=== PATIENT | male | born 1970 | race Two or more races ===

== ENCOUNTER 2017-08-14 20:58 | Emergency (ER) | payer MEDICAID, OTHER ==
[~2017-08-14] VITALS: Ht 177.8 cm; Wt 108.9 kg
[2017-08-14 21:50] LABS: Basophils # (auto) 0 uL; Basophils % (auto) 0.5 % (0.0-2.0); Eosinophils # (auto) 0.2 uL; Eosinophils % (auto) 3.1 % (0.0-7.0); Hematocrit 44.6 % (41.0-53.0); Hemoglobin 14.9 g/dL (13.5-17.5); Lymphocytes # (auto) 2.5 uL; Mean Corpuscular Hemoglobin 29.8 pg (28.0-32.0); Mean Corpuscular Hgb Conc. 33.4 g/dL (32.0-36.0); Mean Corpuscular Volume 89.2 fL (80.0-100.0); Mean Platelet Volume 9.3 fL (6.9-10.8); Monocytes # (auto) 0.5 uL; Neutrophils # (auto) 4.4 uL; Neutrophils % (auto) 57.4 % (37.0-80.0); Nucleated Red Blood Cells % 0.1 %; Platelet Count (auto) 200 10^3/uL (140-450); White Blood Cell 7.7 10^3/uL (4.4-10.8)
[2017-08-14 22:00] LABS: Albumin 3.5 g/dL (3.4-5.0); BUN/Creatinine Ratio 13.9; Bilirubin, Total 0.3 mg/dL (0.2-1.0); Calcium 8.6 mg/dL (8.5-10.1)
[2017-08-15] MEDS ORDERED: ONDANSETRON HCL 4 MG/2 ML VIAL IV ONE (03:15)
[2017-08-15] MEDS ORDERED: MORPHINE SULF INJ 2 MG/ML SYRINGE 1ML IV ONE (03:15)
[2017-08-15 04:16] LABS: Urine Bilirubin Negative (Negative); Urine Blood Negative /uL (Negative); Urine Color Yellow (Yellow); Urine Glucose TRACE mg/dL (Normal); Urine Ketone Negative (Negative); Urine Mucus FEW (None Seen); Urine Nitrite Negative (Negative); Urine RBC 1 /hpf (0 - 3); Urine Squamous Epithelial Cell FEW /hpf (<5); Urine Urobilinogen Normal (Negative)
[2017-08-15 05:31] VITALS: BP 134/75
== END 2017-08-15 05:37 | disposition home or self-care (01) ==
LOC: ER 21:02
DX: N23 Unspecified renal colic (principal); N40.0 Benign prostatic hyperplasia without lower urinary tract symptoms; N39.0 Urinary tract infection, site not specified; F19.10 Other psychoactive substance abuse, uncomplicated; F17.210 Nicotine dependence, cigarettes, uncomplicated; I10 Essential (primary) hypertension; Z87.442 Personal history of urinary calculi
CPT/HCPCS: 36415; 74176; 80053; 80307; 81001; 85025; 96374; 96375; 99285; J2270; J2405

== ENCOUNTER 2020-12-05 00:34 | Inpatient (IN) | payer MEDICAID ==
[~2020-12-05] VITALS: Ht 175.3 cm; Wt 110.5 kg
[2020-12-05] MEDS ORDERED: SODIUM CHLORIDE 0.9% 1,000 ML IV ONE (01:30)
[2020-12-05] MEDS ORDERED: ACETAMINOPHEN 325 MG TAB PO ONE (01:30)
[2020-12-05 02:22] LABS: Basophils # (auto) 0 10 ^3/uL (0-0.2); Basophils % (auto) 0.4 % (0.0-2.0); Eosinophils # (auto) 0 10 ^3/uL (0-0.8); Eosinophils % (auto) 0.1 % (0.0-7.0); Hematocrit 42.4 % (41.0-53.0); Hemoglobin 14.5 g/dL (13.5-17.5); Lymphocytes % (auto) 25.4 % (10.0-50.0); Mean Corpuscular Hemoglobin 29.8 pg (28.0-32.0); Mean Corpuscular Hgb Conc. 34.1 g/dL (32.0-36.0); Mean Corpuscular Volume 87.4 fL (80.0-100.0); Monocytes # (auto) 0.3 10 ^3/uL (0-1.3); Monocytes % (auto) 7.5 % (0.0-12.0); Neutrophils # (auto) 2.5 10 ^3/uL (1.6-8.6); Neutrophils % (auto) 66.6 % (37.0-80.0); Nucleated Red Blood Cells % 0.4 %; Red Blood Cells 4.85 10^6/uL (4.5-5.90); Red Cell Distribution Width 14.2 % (11.8-14.3); White Blood Cell 3.8 10^3/uL (4.4-10.8)
[2020-12-05 02:42] LABS: Albumin 3.3 g/dL (3.4-5.0); Anion Gap 6 (5-15); Blood Urea Nitrogen 9 mg/dL (7-18); Calcium 8.4 mg/dL (8.5-10.1); Carbon Dioxide 23 mmol/L (21-32); Chloride 106 mmol/L (98-107); Glucose 178 mg/dL (74-106); Potassium 3.8 mmol/L (3.5-5.1); Sodium 135 mmol/L (136-145)
[2020-12-05 02:49] LABS: Alanine Aminotransferase 38 U/L (16-61); Alkaline Phosphatase 101 U/L (45-117); Aspartate Aminotransferase 40 U/L (15-37); BUN/Creatinine Ratio 12.3; Bilirubin, Total 0.4 mg/dL (0.2-1.0); GFR African American 147 mL/min; GFR Non-African American 121 mL/min; Total Protein 8.4 g/dL (6.4-8.2)
[2020-12-05] MEDS ORDERED: IPRATROPIUM BROM 0.5 MG/2.5ML INH SOL NEB ONE (03:45)
[2020-12-05] MEDS ORDERED: ALBUTEROL SULF 2.5 MG/0.5ML(0.5%) NEB SOLN NEB ONE (03:45)
[2020-12-05] MEDS ORDERED: ACETAMINOPHEN 500 MG TAB PO ONE (03:45)
[2020-12-05] MEDS ORDERED: DexAMETHasone SOD PHOS 10MG/1ML VIAL INJ IV ONE (04:15)
[2020-12-05] MEDS ORDERED: cefTRIAXone 1GM/50ML D5W 50 ML IV ONE (05:15)
[2020-12-05] MEDS ORDERED: ONDANSETRON HCL 4 MG/2 ML VIAL IV PRN (05:45)
[2020-12-05] MEDS ORDERED: NITROGLYCERIN 0.4 MG SL TAB SL PRN (05:45)
[2020-12-05] MEDS ORDERED: ACETAMINOPHEN 500 MG TAB PO PRN (05:45)
[2020-12-05] MEDS ORDERED: DEXTROSE (50%) 50ML SYRG IV PRN (05:45)
[2020-12-05] MEDS ORDERED: SODIUM CHLORIDE 0.9% 1,000 ML IV SCH (05:45)
[2020-12-05] MEDS ORDERED: MORPHINE SULFATE INJECTION 2 MG/ML SYRG IV PRN (05:45)
[2020-12-05] MEDS ORDERED: DOCUSATE SOD 100 MG CAP PO PRN (05:45)
[2020-12-05] MEDS ORDERED: ACETAMINOPHEN 325 MG TAB PO PRN (05:45)
[2020-12-05] MEDS: InsuLIN REG 1unit/0.01ml Soln (100units/ml) SC SCH ×4 (07:07→22:05)
[2020-12-05] MEDS: ACCU-CHEK COMFORT CURVE STRIP VI SCH ×4 (07:07→22:06)
[2020-12-05] MEDS: BUDESONIDE (INHALATION) 180 MCG IH IN SCH ×2 (10:00→20:49)
[2020-12-05] MEDS: ENOXAPARIN SOD 40 MG/0.4 ML SYRINGE SC SCH ×2 (11:45→22:06)
[2020-12-05] MEDS: ZINC SULFATE 220mg CAP or TAB PO SCH (12:02)
[2020-12-05] MEDS: CHOLECALCIFEROL (VITD3) 2,000 UNIT CAP/TAB PO SCH (12:02)
[2020-12-05] MEDS: ASCORBIC ACID 1,000 MG TAB PO SCH (12:02)
[2020-12-05] MEDS: DexAMETHasone SOD PHOS 10MG/1ML VIAL INJ IV SCH (12:04)
[2020-12-05] MEDS: FAMOTIDINE (10MG/ML) 2ML VL IV SCH ×2 (12:04→21:59)
[2020-12-05] MEDS: DOXYCYCLINE 100MG/250ML 250 ML IV SCH ×2 (12:23→22:05)
[2020-12-05] MEDS: ALBUTEROL SULF HFA 90MCG INH 200DOSE IN PRN (20:49)
[2020-12-05] MEDS ORDERED: REMDESIVIR PER PHARMACY 0 ML IV SCH (23:30)
[2020-12-06 07:03] LABS: Basophils # (auto) 0 10 ^3/uL (0-0.2); Eosinophils # (auto) 0 10 ^3/uL (0-0.8); Hematocrit 38.2 % (41.0-53.0); Hemoglobin 13.1 g/dL (13.5-17.5); Lymphocytes # (auto) 1.1 10 ^3/uL (0.4-5.4); Lymphocytes % (auto) 13.4 % (10.0-50.0); Mean Corpuscular Hemoglobin 29.9 pg (28.0-32.0); Mean Corpuscular Hgb Conc. 34.3 g/dL (32.0-36.0); Mean Corpuscular Volume 87.2 fL (80.0-100.0); Monocytes # (auto) 0.4 10 ^3/uL (0-1.3); Neutrophils # (auto) 6.8 10 ^3/uL (1.6-8.6); Neutrophils % (auto) 81.6 % (37.0-80.0); Nucleated Red Blood Cells % 0.1 %; Red Blood Cells 4.38 10^6/uL (4.5-5.90); Red Cell Distribution Width 14.2 % (11.8-14.3); White Blood Cell 8.4 10^3/uL (4.4-10.8)
[2020-12-06] MEDS: ALBUTEROL SULF HFA 90MCG INH 200DOSE IN PRN ×2 (07:10→18:55)
[2020-12-06] MEDS: BUDESONIDE (INHALATION) 180 MCG IH IN SCH ×2 (07:10→18:55)
[2020-12-06] MEDS: ACCU-CHEK COMFORT CURVE STRIP VI SCH ×4 (08:10→21:28)
[2020-12-06] MEDS: InsuLIN REG 1unit/0.01ml Soln (100units/ml) SC SCH ×4 (08:17→21:28)
[2020-12-06] MEDS: DexAMETHasone SOD PHOS 10MG/1ML VIAL INJ IV SCH (09:55)
[2020-12-06] MEDS: DOXYCYCLINE 100MG/250ML 250 ML IV SCH ×2 (09:55→21:28)
[2020-12-06] MEDS: ZINC SULFATE 220mg CAP or TAB PO SCH (09:55)
[2020-12-06] MEDS: ENOXAPARIN SOD 40 MG/0.4 ML SYRINGE SC SCH ×2 (09:55→21:28)
[2020-12-06] MEDS: ASCORBIC ACID 1,000 MG TAB PO SCH (09:55)
[2020-12-06] MEDS: CHOLECALCIFEROL (VITD3) 2,000 UNIT CAP/TAB PO SCH (09:55)
[2020-12-06] MEDS: FAMOTIDINE (10MG/ML) 2ML VL IV SCH ×2 (09:55→21:27)
[2020-12-06 11:57] LABS: Albumin 2.9 g/dL (3.4-5.0); Calcium 8.7 mg/dL (8.5-10.1); Potassium 3.8 mmol/L (3.5-5.1)
[2020-12-06 12:01] LABS: BUN/Creatinine Ratio 26.8; Bilirubin, Total 0.2 mg/dL (0.2-1.0); Total Protein 7.3 g/dL (6.4-8.2)
[2020-12-06] MEDS ORDERED: REMDESIVIR 200 MG in NS 210ml LOADING DOSE ADULT IV ONE (15:00)
[2020-12-06 16:05] VITALS: BP 127/86
[2020-12-07] VITALS: BP 145/79
[2020-12-07] MEDS: HYDROcodone-ACET 5/325MG TAB PO PRN (01:38)
[2020-12-07 05:59] LABS: Calcium 8.2 mg/dL (8.5-10.1); Potassium 3.5 mmol/L (3.5-5.1)
[2020-12-07 06:04] LABS: BUN/Creatinine Ratio 23.4; Bilirubin, Total 0.4 mg/dL (0.2-1.0); Total Protein 7.5 g/dL (6.4-8.2)
[2020-12-07] MEDS: ACCU-CHEK COMFORT CURVE STRIP VI SCH ×4 (06:17→21:47)
[2020-12-07] MEDS: InsuLIN REG 1unit/0.01ml Soln (100units/ml) SC SCH ×4 (06:18→21:56)
[2020-12-07] MEDS: ALBUTEROL SULF HFA 90MCG INH 200DOSE IN PRN ×2 (07:35→21:26)
[2020-12-07] MEDS: BUDESONIDE (INHALATION) 180 MCG IH IN SCH ×2 (07:35→21:26)
[2020-12-07 08:00] VITALS: BP 129/67
[2020-12-07] MEDS: DexAMETHasone SOD PHOS 10MG/1ML VIAL INJ IV SCH (09:54)
[2020-12-07] MEDS: FAMOTIDINE (10MG/ML) 2ML VL IV SCH ×2 (09:54→21:47)
[2020-12-07] MEDS: DOXYCYCLINE 100MG/250ML 250 ML IV SCH ×2 (09:54→21:47)
[2020-12-07] MEDS: ASCORBIC ACID 1,000 MG TAB PO SCH (09:55)
[2020-12-07] MEDS: ENOXAPARIN SOD 40 MG/0.4 ML SYRINGE SC SCH ×2 (09:55→21:47)
[2020-12-07] MEDS: ZINC SULFATE 220mg CAP or TAB PO SCH (09:55)
[2020-12-07] MEDS: CHOLECALCIFEROL (VITD3) 2,000 UNIT CAP/TAB PO SCH (09:55)
[2020-12-07] MEDS: guaiFENesin 200 MG/10 ML UD PO PRN (11:00)
[2020-12-07] MEDS: REMDESIVIR 100mg 100 MG in SODIUM CHL 0.9% 230 ML IV SCH (15:15)
[2020-12-07] MEDS ORDERED: DEX4T PO (15:32)
[2020-12-07] MEDS ORDERED: DOXY-286 PO (15:32)
[2020-12-07] MEDS ORDERED: ASPI-543 PO (15:32)
[2020-12-07] MEDS ORDERED: FAMO20TA10 PO (15:32)
[2020-12-07] MEDS ORDERED: ALBUAER3 IN (15:32)
[2020-12-07 16:00] VITALS: BP 149/72
[2020-12-07 23:41] VITALS: BP 153/85
[2020-12-08] MEDS: ACCU-CHEK COMFORT CURVE STRIP VI SCH ×2 (06:20→11:30)
[2020-12-08] MEDS: InsuLIN REG 1unit/0.01ml Soln (100units/ml) SC SCH ×2 (06:21→11:30)
[2020-12-08 07:56] LABS: Basophils # (auto) 0 10 ^3/uL (0-0.2); Basophils % (auto) 0.1 % (0.0-2.0); Eosinophils # (auto) 0 10 ^3/uL (0-0.8); Hematocrit 40.4 % (41.0-53.0); Hemoglobin 13.9 g/dL (13.5-17.5); Lymphocytes # (auto) 1.5 10 ^3/uL (0.4-5.4); Lymphocytes % (auto) 20.4 % (10.0-50.0); Mean Corpuscular Hemoglobin 29.8 pg (28.0-32.0); Mean Corpuscular Hgb Conc. 34.5 g/dL (32.0-36.0); Mean Corpuscular Volume 86.2 fL (80.0-100.0); Monocytes # (auto) 0.5 10 ^3/uL (0-1.3); Monocytes % (auto) 6.9 % (0.0-12.0); Neutrophils # (auto) 5.2 10 ^3/uL (1.6-8.6); Neutrophils % (auto) 72.6 % (37.0-80.0); Nucleated Red Blood Cells % 0.2 %; Red Blood Cells 4.68 10^6/uL (4.5-5.90); Red Cell Distribution Width 14.6 % (11.8-14.3); White Blood Cell 7.2 10^3/uL (4.4-10.8)
[2020-12-08 08:00] VITALS: BP 141/86
[2020-12-08 08:13] LABS: Potassium 3.6 mmol/L (3.5-5.1)
[2020-12-08 08:25] LABS: Albumin 2.8 g/dL (3.4-5.0); BUN/Creatinine Ratio 28.4; Bilirubin, Total 0.4 mg/dL (0.2-1.0); CRP High Sensitivity 3.8 mg/dL (< 0.3); Calcium 8.3 mg/dL (8.5-10.1); Total Protein 7.6 g/dL (6.4-8.2)
[2020-12-08] MEDS: BUDESONIDE (INHALATION) 180 MCG IH IN SCH (09:19)
[2020-12-08] MEDS: ALBUTEROL SULF HFA 90MCG INH 200DOSE IN PRN (09:19)
[2020-12-08] MEDS: ZINC SULFATE 220mg CAP or TAB PO SCH (09:27)
[2020-12-08] MEDS: DexAMETHasone SOD PHOS 10MG/1ML VIAL INJ IV SCH (09:27)
[2020-12-08] MEDS: FAMOTIDINE (10MG/ML) 2ML VL IV SCH (09:27)
[2020-12-08] MEDS: ASCORBIC ACID 1,000 MG TAB PO SCH (09:28)
[2020-12-08] MEDS: CHOLECALCIFEROL (VITD3) 2,000 UNIT CAP/TAB PO SCH (09:28)
[2020-12-08] MEDS: ENOXAPARIN SOD 40 MG/0.4 ML SYRINGE SC SCH (09:28)
[2020-12-08] MEDS: DOXYCYCLINE 100MG/250ML 250 ML IV SCH (09:30)
[2020-12-08] MEDS: guaiFENesin 200 MG/10 ML UD PO PRN (12:40)
[2020-12-08] MEDS: HYDROcodone-ACET 5/325MG TAB PO PRN (12:41)
[2020-12-08 16:02] VITALS: BP 131/79
[2020-12-08] MEDS: REMDESIVIR 100mg 100 MG in SODIUM CHL 0.9% 230 ML IV SCH (16:04)
== END 2020-12-08 17:20 | disposition home health service (06) | DRG 137 ==
LOC: ER 00:34 → TELE 00:35 → TELE-WESTW 12-06 12:02
PROVIDERS: ADMIT Nurse Practitioner Family; ATTEND Hospitalist
PROC: XW033E5 Introduction of Remdesivir Anti-infective into Peripheral Vein, Percutaneous Approach, New Technology Group 5 (ICD-10-PCS; principal; 2020-12-06)
DX: U07.1 COVID-19 (principal); J12.82 Pneumonia due to coronavirus disease 2019; E11.65 Type 2 diabetes mellitus with hyperglycemia; J96.01 Acute respiratory failure with hypoxia; E66.9 Obesity, unspecified; Z68.34 Body mass index [BMI] 34.0-34.9, adult; F17.210 Nicotine dependence, cigarettes, uncomplicated; I10 Essential (primary) hypertension; J44.0 Chronic obstructive pulmonary disease with (acute) lower respiratory infection; Z87.442 Personal history of urinary calculi
CPT/HCPCS: 36415; 71045; 74176; 80053; 82728; 82962; 83036; 83605; 83690; 83735; 83880; 84443; 84484; 85025; 85379; 86141; 87040; 87426; 93005; 93970; 94640; 96361; 96365; 96375; G0378; J0696; J1100; J1815; J3490

== ENCOUNTER 2020-12-12 13:02 | Inpatient (IN) | payer MEDICAID ==
[~2020-12-12] VITALS: Ht 175.3 cm; Wt 102.8 kg
[~2020-12-12 13:02] MED LIST: ALBUAER3 IN; ASPI-543 PO; DEX4T PO; DOXY-286 PO; FAMO20TA10 PO
[2020-12-12 14:24] LABS: INR 1.23 (0.9-1.15); Partial Thromboplastin Time 27.6 sec (23.0-31.2)
[2020-12-12 14:44] LABS: Albumin 2.6 g/dL (3.4-5.0); Anion Gap 7 (5-15); Blood Urea Nitrogen 13 mg/dL (7-18); Calcium 8.2 mg/dL (8.5-10.1); Carbon Dioxide 25 mmol/L (21-32); Chloride 105 mmol/L (98-107); Glucose 212 mg/dL (74-106); Magnesium 2.3 mg/dL (1.6-2.6); Potassium 3.4 mmol/L (3.5-5.1); Sodium 137 mmol/L (136-145)
[2020-12-12 14:48] LABS: Hemoglobin 13.4 g/dL (13.5-17.5)
[2020-12-12 14:49] LABS: Alanine Aminotransferase 19 U/L (16-61); Alkaline Phosphatase 98 U/L (45-117); Aspartate Aminotransferase 17 U/L (15-37); BUN/Creatinine Ratio 15.9; GFR African American 128 mL/min; GFR Non-African American 106 mL/min; Total Protein 8.3 g/dL (6.4-8.2)
[2020-12-12 14:50] LABS: Hematocrit 38.7 % (41.0-53.0); Mean Corpuscular Hemoglobin 30.1 pg (28.0-32.0); Mean Corpuscular Hgb Conc. 34.7 g/dL (32.0-36.0); Mean Corpuscular Volume 86.8 fL (80.0-100.0); Platelet Count (auto) 58 10^3/uL (140-450); Red Blood Cells 4.46 10^6/uL (4.5-5.90); Red Cell Distribution Width 14.4 % (11.8-14.3); White Blood Cell 14.2 10^3/uL (4.4-10.8)
[2020-12-12 14:52] LABS: Lactic Acid w/Reflex 2.2 mmol/L (0.4-2.0)
[2020-12-12 14:53] LABS: Band Neutrophils % (manual) 0; Basophils % (manual) 0 (0.0-2.0); Blast Cells 0; Eosinophils % (manual) 0 (0-7); Metamyelocytes % 0; Myelocytes % 0; Promyelocytes % 0; Reactive Lymphocytes 0
[2020-12-12] MEDS ORDERED: AZITHROMYCIN 500MG/ 250ML 250 ML IV ONE (15:30)
[2020-12-12] MEDS ORDERED: DexAMETHasone SOD PHOS 10MG/1ML VIAL INJ IV ONE (15:30)
[2020-12-12] MEDS ORDERED: REMDESIVIR PER PHARMACY 0 ML IV SCH (16:00)
[2020-12-12] MEDS ORDERED: IOHEXOL 350 MG/ML 100ML IJ ONE (16:13)
[2020-12-12] MEDS ORDERED: SODIUM CHLORIDE 0.9% 1,000 ML IV ONE (16:15)
[2020-12-12] MEDS ORDERED: POTASSIUM CHL 20 Meq TABLET PO ONE (16:15)
[2020-12-12 17:18] LABS: Lymphocytes % (manual) 13 (10.0-50.0); Monocytes % (manual) 7 (0-12)
[2020-12-12] MEDS ORDERED: NITROGLYCERIN 0.4 MG SL TAB SL PRN (19:45)
[2020-12-12] MEDS ORDERED: DEXTROSE (50%) 50ML SYRG IV PRN (19:45)
[2020-12-12] MEDS ORDERED: MORPHINE SULF INJ 2 MG/ML SYRINGE 1ML IV PRN (19:45)
[2020-12-12] MEDS ORDERED: hydrALAZINE HCL 20 MG/ML VL IV PRN (19:45)
[2020-12-12] MEDS: DOXYCYCLINE 100 MG TAB/CAP PO SCH (20:04)
[2020-12-12] MEDS ORDERED: REMDESIVIR 200 MG in NS 210ml LOADING DOSE ADULT IV ONE (20:30)
[2020-12-12] MEDS: ACCU-CHEK COMFORT CURVE STRIP VI SCH (22:10)
[2020-12-12] MEDS: InsuLIN REG 1unit/0.01ml Soln (100units/ml) SC SCH (22:18)
[2020-12-12] MEDS: INSULIN LANTUS (GLARGINE) 1 /0.01ml (100units/ml) SC SCH (22:19)
[2020-12-13] MEDS: ALBUTEROL SULF HFA 90MCG INH 200DOSE IN SCH ×2 (00:02→06:00)
[2020-12-13 05:28] LABS: Basophils # (auto) 0 10 ^3/uL (0-0.2); Basophils % (auto) 0.3 % (0.0-2.0); Eosinophils # (auto) 0 10 ^3/uL (0-0.8); Monocytes # (auto) 0.6 10 ^3/uL (0-1.3); Red Cell Distribution Width 14.5 % (11.8-14.3); White Blood Cell 11.5 10^3/uL (4.4-10.8)
[2020-12-13 05:30] LABS: Hematocrit 34.1 % (41.0-53.0); Lymphocytes # (auto) 1.2 10 ^3/uL (0.4-5.4); Lymphocytes % (auto) 10.2 % (10.0-50.0); Mean Corpuscular Hemoglobin 31.2 pg (28.0-32.0); Mean Corpuscular Hgb Conc. 35.1 g/dL (32.0-36.0); Mean Corpuscular Volume 88.7 fL (80.0-100.0); Monocytes % (auto) 5.4 % (0.0-12.0); Neutrophils # (auto) 9.6 10 ^3/uL (1.6-8.6); Neutrophils % (auto) 84.1 % (37.0-80.0); Platelet Count (auto) 42 10^3/uL (140-450); Red Blood Cells 3.84 10^6/uL (4.5-5.90)
[2020-12-13 05:39] LABS: Albumin 2.2 g/dL (3.4-5.0); Calcium 8.1 mg/dL (8.5-10.1); Potassium 4.2 mmol/L (3.5-5.1)
[2020-12-13 05:41] LABS: INR 1.16 (0.9-1.15)
[2020-12-13 05:44] LABS: BUN/Creatinine Ratio 23.9; Bilirubin, Total 0.6 mg/dL (0.2-1.0); Total Protein 7.6 g/dL (6.4-8.2)
[2020-12-13] MEDS: ACCU-CHEK COMFORT CURVE STRIP VI SCH ×4 (07:00→21:52)
[2020-12-13] MEDS: InsuLIN REG 1unit/0.01ml Soln (100units/ml) SC SCH ×4 (08:30→21:50)
[2020-12-13] MEDS: DOXYCYCLINE 100 MG TAB/CAP PO SCH ×2 (09:18→21:36)
[2020-12-13] MEDS: ALPRAZolam 0.25 MG TAB PO PRN ×2 (09:18→21:36)
[2020-12-13 13:12] LABS: Urine Bacteria NONE SEEN /hpf (None Seen); Urine Blood Negative /uL (Negative); Urine Mucus FEW (None Seen); Urine Specific Gravity 1.034 (1.001-1.035); Urine WBC 4 /hpf (0 - 3)
[2020-12-13 13:23] LABS: Amphetamine Screen, Urine NEGATIVE (NEGATIVE); Barbiturate Scree,Urine NEGATIVE (NEGATIVE); Benzodiazephine Screen, Urine NEGATIVE (NEGATIVE); Cannabinoid Screen, Urine NEGATIVE (NEGATIVE); Cocaine Screen, Urine NEGATIVE (NEGATIVE); Opiate Scree,Urine NEGATIVE (NEGATIVE); Phencyclidine Screen, Urine NEGATIVE (NEGATIVE)
[2020-12-13 14:24] LABS: Lactate Dehydrogenase 420 U/L (87-241)
[2020-12-13 14:39] LABS: CRP High Sensitivity > 19.0 mg/dL (< 0.3)
[2020-12-13] MEDS: REMDESIVIR 100mg 100 MG in SODIUM CHL 0.9% 230 ML IV SCH (15:21)
[2020-12-13] MEDS: BUDESONIDE (INHALATION) 180 MCG IH IN SCH (19:19)
[2020-12-13] MEDS: ALBUTEROL SULF HFA 90MCG INH 200DOSE IN PRN (19:19)
[2020-12-13] MEDS: INSULIN LANTUS (GLARGINE) 1 /0.01ml (100units/ml) SC SCH (21:50)
[2020-12-14] MEDS ORDERED: ACETAMINOPHEN 500 MG TAB PO ONE ×2 (00:24)
[2020-12-14] MEDS ORDERED: SODIUM CHLORIDE 0.9% 1,000 ML IV ONE ×2 (02:00→03:30)
[2020-12-14] MEDS ORDERED: VANCOMYCIN 1GM/250ML 250 ML IV ONE (03:30)
[2020-12-14 06:46] LABS: Hematocrit 35.4 % (41.0-53.0); Hemoglobin 12.2 g/dL (13.5-17.5); Mean Corpuscular Hemoglobin 30.1 pg (28.0-32.0); Mean Corpuscular Hgb Conc. 34.4 g/dL (32.0-36.0); Mean Corpuscular Volume 87.7 fL (80.0-100.0); Platelet Count (auto) 65 10^3/uL (140-450); Red Blood Cells 4.04 10^6/uL (4.5-5.90); Red Cell Distribution Width 14.3 % (11.8-14.3); White Blood Cell 15.9 10^3/uL (4.4-10.8)
[2020-12-14 07:11] LABS: Albumin 2.3 g/dL (3.4-5.0); BUN/Creatinine Ratio 22.4; Calcium 8.3 mg/dL (8.5-10.1); Potassium 3.8 mmol/L (3.5-5.1)
[2020-12-14 07:14] LABS: Bilirubin, Total 0.7 mg/dL (0.2-1.0); Total Protein 7.6 g/dL (6.4-8.2)
[2020-12-14 07:16] LABS: Basophils % (manual) 0 (0.0-2.0); Blast Cells 0; Metamyelocytes % 0; Myelocytes % 0; Promyelocytes % 0; Reactive Lymphocytes 0
[2020-12-14] MEDS: InsuLIN REG 1unit/0.01ml Soln (100units/ml) SC SCH ×4 (07:55→22:00)
[2020-12-14] MEDS: ACCU-CHEK COMFORT CURVE STRIP VI SCH ×4 (07:55→22:00)
[2020-12-14] MEDS: BUDESONIDE (INHALATION) 180 MCG IH IN SCH ×3 (08:01→22:00)
[2020-12-14] MEDS: ALBUTEROL SULF HFA 90MCG INH 200DOSE IN PRN ×2 (08:01→22:36)
[2020-12-14 09:38] LABS: Band Neutrophils % (manual) 13; Eosinophils % (manual) 2 (0-7); Lymphocytes % (manual) 11 (10.0-50.0); Monocytes % (manual) 4 (0-12)
[2020-12-14] MEDS: ZINC SULFATE 220mg CAP or TAB PO SCH (10:14)
[2020-12-14] MEDS: ASCORBIC ACID 1,000 MG TAB PO SCH (10:14)
[2020-12-14] MEDS: DexAMETHasone SOD PHOS 10MG/1ML VIAL INJ IV SCH (10:14)
[2020-12-14] MEDS: CHOLECALCIFEROL (VITD3) 2,000 UNIT CAP/TAB PO SCH (10:14)
[2020-12-14] MEDS: DOXYCYCLINE 100 MG TAB/CAP PO SCH ×2 (10:15→21:50)
[2020-12-14 11:00] VITALS: BP 157/93
[2020-12-14] MEDS: ALPRAZolam 0.25 MG TAB PO PRN (12:25)
[2020-12-14] MEDS: REMDESIVIR 100mg 100 MG in SODIUM CHL 0.9% 230 ML IV SCH ×2 (15:00→15:25)
[2020-12-14 16:10] VITALS: BP 137/72
[2020-12-14 16:25] VITALS: BP 137/72
[2020-12-14] MEDS ORDERED: ALPRAZolam 0.25 MG TAB PO ONE (17:00)
[2020-12-14 18:35] VITALS: BP 139/81
[2020-12-14] MEDS: ALPRAZolam 0.5 MG TAB PO PRN (21:49)
[2020-12-14] MEDS: INSULIN LANTUS (GLARGINE) 1 /0.01ml (100units/ml) SC SCH (22:00)
[2020-12-14 22:25] VITALS: BP 157/84
[2020-12-15] VITALS (8 sets, daily range): BP systolic 123–151; BP diastolic 73–97
[2020-12-15] MEDS: InsuLIN REG 1unit/0.01ml Soln (100units/ml) SC SCH ×4 (06:13→21:45)
[2020-12-15] MEDS: ACCU-CHEK COMFORT CURVE STRIP VI SCH ×4 (07:04→21:46)
[2020-12-15] MEDS: BUDESONIDE (INHALATION) 180 MCG IH IN SCH ×2 (07:06→22:00)
[2020-12-15] MEDS: ALBUTEROL SULF HFA 90MCG INH 200DOSE IN PRN (07:06)
[2020-12-15 08:16] LABS: Albumin 2.1 g/dL (3.4-5.0); Calcium 8.1 mg/dL (8.5-10.1)
[2020-12-15 08:19] LABS: BUN/Creatinine Ratio 26.1; Bilirubin, Total 0.6 mg/dL (0.2-1.0); Total Protein 7.4 g/dL (6.4-8.2)
[2020-12-15 08:43] LABS: Basophils # (auto) 0 10 ^3/uL (0-0.2); Basophils % (auto) 0.1 % (0.0-2.0); Eosinophils # (auto) 0 10 ^3/uL (0-0.8); Eosinophils % (auto) 0.3 % (0.0-7.0); Hematocrit 35.1 % (41.0-53.0); Hemoglobin 11.8 g/dL (13.5-17.5); Lymphocytes # (auto) 1.3 10 ^3/uL (0.4-5.4); Lymphocytes % (auto) 8.8 % (10.0-50.0); Mean Corpuscular Hemoglobin 29.8 pg (28.0-32.0); Mean Corpuscular Hgb Conc. 33.6 g/dL (32.0-36.0); Mean Corpuscular Volume 88.6 fL (80.0-100.0); Monocytes # (auto) 0.9 10 ^3/uL (0-1.3); Monocytes % (auto) 6.3 % (0.0-12.0); Neutrophils # (auto) 12.8 10 ^3/uL (1.6-8.6); Neutrophils % (auto) 84.5 % (37.0-80.0); Red Blood Cells 3.96 10^6/uL (4.5-5.90); Red Cell Distribution Width 14.3 % (11.8-14.3); White Blood Cell 15.1 10^3/uL (4.4-10.8)
[2020-12-15] MEDS: ZINC SULFATE 220mg CAP or TAB PO SCH (11:03)
[2020-12-15] MEDS: DexAMETHasone SOD PHOS 10MG/1ML VIAL INJ IV SCH (11:03)
[2020-12-15] MEDS: ASCORBIC ACID 1,000 MG TAB PO SCH (11:05)
[2020-12-15] MEDS: DOXYCYCLINE 100 MG TAB/CAP PO SCH ×2 (11:05→21:45)
[2020-12-15] MEDS: CHOLECALCIFEROL (VITD3) 2,000 UNIT CAP/TAB PO SCH (11:06)
[2020-12-15] MEDS: ALPRAZolam 0.5 MG TAB PO PRN (11:25)
[2020-12-15] MEDS ORDERED: FUROSEMIDE 40 MG/4 ML VIAL IV ONE (13:00)
[2020-12-15] MEDS: REMDESIVIR 100mg 100 MG in SODIUM CHL 0.9% 230 ML IV SCH (15:21)
[2020-12-15] MEDS: ALPRAZolam 0.5 MG TAB PO SCH (21:45)
[2020-12-15] MEDS: INSULIN LANTUS (GLARGINE) 1 /0.01ml (100units/ml) SC SCH (21:46)
[2020-12-16 01:40] VITALS: BP 145/89
[2020-12-16 06:25] VITALS: BP 124/80
[2020-12-16] MEDS: BUDESONIDE (INHALATION) 180 MCG IH IN SCH ×2 (06:25→22:23)
[2020-12-16] MEDS: ALBUTEROL SULF HFA 90MCG INH 200DOSE IN PRN ×2 (06:25→22:23)
[2020-12-16] MEDS: ACCU-CHEK COMFORT CURVE STRIP VI SCH ×4 (06:39→21:43)
[2020-12-16] MEDS: InsuLIN REG 1unit/0.01ml Soln (100units/ml) SC SCH ×4 (06:40→21:41)
[2020-12-16 07:02] LABS: Albumin 2.2 g/dL (3.4-5.0); Calcium 8.5 mg/dL (8.5-10.1)
[2020-12-16 07:04] LABS: BUN/Creatinine Ratio 33.8
[2020-12-16 07:07] LABS: Bilirubin, Total 0.6 mg/dL (0.2-1.0); Total Protein 7.5 g/dL (6.4-8.2)
[2020-12-16 08:09] LABS: Basophils # (auto) 0 10 ^3/uL (0-0.2); Basophils % (auto) 0.3 % (0.0-2.0); Eosinophils # (auto) 0.1 10 ^3/uL (0-0.8); Eosinophils % (auto) 0.8 % (0.0-7.0); Lymphocytes # (auto) 1.1 10 ^3/uL (0.4-5.4); Lymphocytes % (auto) 10.1 % (10.0-50.0); Mean Corpuscular Hemoglobin 29.8 pg (28.0-32.0); Mean Corpuscular Hgb Conc. 34.1 g/dL (32.0-36.0); Mean Corpuscular Volume 87.5 fL (80.0-100.0); Monocytes # (auto) 0.5 10 ^3/uL (0-1.3); Monocytes % (auto) 5.1 % (0.0-12.0); Neutrophils % (auto) 83.7 % (37.0-80.0); Red Cell Distribution Width 14.5 % (11.8-14.3)
[2020-12-16 08:13] LABS: Hematocrit 36.5 % (41.0-53.0); Hemoglobin 12.4 g/dL (13.5-17.5); Platelet Count (auto) 162 10^3/uL (140-450); Red Blood Cells 4.18 10^6/uL (4.5-5.90); White Blood Cell 11.8 10^3/uL (4.4-10.8)
[2020-12-16] MEDS: ASCORBIC ACID 1,000 MG TAB PO SCH (08:52)
[2020-12-16] MEDS: ZINC SULFATE 220mg CAP or TAB PO SCH (08:52)
[2020-12-16] MEDS: DOXYCYCLINE 100 MG TAB/CAP PO SCH ×2 (08:52→21:58)
[2020-12-16] MEDS: DexAMETHasone SOD PHOS 10MG/1ML VIAL INJ IV SCH (08:53)
[2020-12-16] MEDS: ALPRAZolam 0.5 MG TAB PO SCH ×2 (08:54→21:58)
[2020-12-16] MEDS: CHOLECALCIFEROL (VITD3) 2,000 UNIT CAP/TAB PO SCH (08:54)
[2020-12-16 09:28] VITALS: BP 137/83
[2020-12-16 14:34] VITALS: BP 115/71
[2020-12-16] MEDS ORDERED: ENOXAPARIN SOD 40 MG/0.4 ML SYRINGE SC ONE (14:45)
[2020-12-16] MEDS ORDERED: PANTOPRAZOLE 40 MG TAB PO ONE (14:45)
[2020-12-16] MEDS: FUROSEMIDE 40 MG/4 ML VIAL IV SCH (15:45)
[2020-12-16] MEDS: REMDESIVIR 100mg 100 MG in SODIUM CHL 0.9% 230 ML IV SCH (15:46)
[2020-12-16] MEDS: INSULIN LANTUS (GLARGINE) 1 /0.01ml (100units/ml) SC SCH (21:42)
[2020-12-17 02:32] VITALS: BP 124/78
[2020-12-17] MEDS: BUDESONIDE (INHALATION) 180 MCG IH IN SCH ×2 (06:35→19:24)
[2020-12-17 06:40] LABS: Potassium 3.5 mmol/L (3.5-5.1)
[2020-12-17] MEDS: ALBUTEROL SULF HFA 90MCG INH 200DOSE IN PRN ×2 (06:49→20:24)
[2020-12-17] MEDS: ACCU-CHEK COMFORT CURVE STRIP VI SCH ×4 (06:52→22:00)
[2020-12-17] MEDS: InsuLIN REG 1unit/0.01ml Soln (100units/ml) SC SCH ×4 (06:52→22:29)
[2020-12-17 07:09] LABS: Albumin 2.2 g/dL (3.4-5.0); BUN/Creatinine Ratio 35.7; Bilirubin, Total 0.5 mg/dL (0.2-1.0); CRP High Sensitivity 7.03 mg/dL (< 0.3); Calcium 8.2 mg/dL (8.5-10.1); Total Protein 7.7 g/dL (6.4-8.2)
[2020-12-17 09:54] LABS: Basophils # (auto) 0 10 ^3/uL (0-0.2); Basophils % (auto) 0.3 % (0.0-2.0); Eosinophils # (auto) 0.1 10 ^3/uL (0-0.8); Eosinophils % (auto) 0.7 % (0.0-7.0); Lymphocytes # (auto) 1.4 10 ^3/uL (0.4-5.4); Lymphocytes % (auto) 14.1 % (10.0-50.0); Mean Corpuscular Hemoglobin 29.6 pg (28.0-32.0); Mean Corpuscular Hgb Conc. 33.8 g/dL (32.0-36.0); Mean Corpuscular Volume 87.8 fL (80.0-100.0); Monocytes # (auto) 0.5 10 ^3/uL (0-1.3); Monocytes % (auto) 4.8 % (0.0-12.0); Neutrophils # (auto) 8.2 10 ^3/uL (1.6-8.6); Neutrophils % (auto) 80.1 % (37.0-80.0); Nucleated Red Blood Cells % 0.1 %; Red Cell Distribution Width 14.1 % (11.8-14.3)
[2020-12-17 09:55] LABS: Hematocrit 39.8 % (41.0-53.0); Hemoglobin 13.4 g/dL (13.5-17.5); Platelet Count (auto) 116 10^3/uL (140-450); White Blood Cell 11.3 10^3/uL (4.4-10.8)
[2020-12-17] MEDS ORDERED: ENOXAPARIN SOD 40 MG/0.4 ML SYRINGE SC SCH (10:00)
[2020-12-17] MEDS: DexAMETHasone SOD PHOS 10MG/1ML VIAL INJ IV SCH (11:30)
[2020-12-17] MEDS: PANTOPRAZOLE 40 MG TAB PO SCH (11:30)
[2020-12-17] MEDS: ASCORBIC ACID 1,000 MG TAB PO SCH (11:30)
[2020-12-17] MEDS: DOXYCYCLINE 100 MG TAB/CAP PO SCH ×2 (11:30→22:38)
[2020-12-17] MEDS: ZINC SULFATE 220mg CAP or TAB PO SCH (11:30)
[2020-12-17] MEDS: CHOLECALCIFEROL (VITD3) 2,000 UNIT CAP/TAB PO SCH (11:30)
[2020-12-17] MEDS: ALPRAZolam 0.5 MG TAB PO SCH ×2 (11:30→22:38)
[2020-12-17] MEDS: FUROSEMIDE 40 MG/4 ML VIAL IV SCH (11:30)
[2020-12-17] MEDS: INSULIN LANTUS (GLARGINE) 1 /0.01ml (100units/ml) SC SCH (22:28)
[2020-12-17] MEDS: ENOXAPARIN SOD 100 MG/1 ML SYRINGE SC SCH (22:38)
[2020-12-18] MEDS: ACETAMINOPHEN 325 MG TAB PO PRN (01:17)
[2020-12-18] MEDS: BUDESONIDE (INHALATION) 180 MCG IH IN SCH ×2 (06:18→19:38)
[2020-12-18 06:45] LABS: Potassium 3.5 mmol/L (3.5-5.1)
[2020-12-18] MEDS: ACCU-CHEK COMFORT CURVE STRIP VI SCH ×4 (06:48→22:14)
[2020-12-18] MEDS: InsuLIN REG 1unit/0.01ml Soln (100units/ml) SC SCH ×4 (06:51→22:24)
[2020-12-18 06:54] LABS: Albumin 2.2 g/dL (3.4-5.0); BUN/Creatinine Ratio 37.1; Bilirubin, Total 0.5 mg/dL (0.2-1.0); Calcium 8.3 mg/dL (8.5-10.1); Total Protein 7.7 g/dL (6.4-8.2)
[2020-12-18 09:00] VITALS: BP 114/78
[2020-12-18] MEDS: ALBUTEROL SULF HFA 90MCG INH 200DOSE IN PRN ×2 (09:06→19:39)
[2020-12-18] MEDS: PANTOPRAZOLE 40 MG TAB PO SCH ×2 (09:35→10:40)
[2020-12-18] MEDS: FUROSEMIDE 40 MG/4 ML VIAL IV SCH (10:38)
[2020-12-18] MEDS: ASCORBIC ACID 1,000 MG TAB PO SCH (10:39)
[2020-12-18] MEDS: DexAMETHasone SOD PHOS 10MG/1ML VIAL INJ IV SCH (10:39)
[2020-12-18] MEDS: DOXYCYCLINE 100 MG TAB/CAP PO SCH ×2 (10:39→22:14)
[2020-12-18] MEDS: ZINC SULFATE 220mg CAP or TAB PO SCH (10:39)
[2020-12-18] MEDS: CHOLECALCIFEROL (VITD3) 2,000 UNIT CAP/TAB PO SCH (10:39)
[2020-12-18] MEDS: ALPRAZolam 0.5 MG TAB PO SCH ×2 (10:39→22:14)
[2020-12-18] MEDS: ENOXAPARIN SOD 100 MG/1 ML SYRINGE SC SCH ×2 (10:40→22:14)
[2020-12-18 11:19] LABS: Basophils # (auto) 0.1 10 ^3/uL (0-0.2); Basophils % (auto) 0.9 % (0.0-2.0); Eosinophils # (auto) 0.1 10 ^3/uL (0-0.8); Hemoglobin 11.8 g/dL (13.5-17.5); Lymphocytes # (auto) 2.2 10 ^3/uL (0.4-5.4); Mean Corpuscular Volume 89.5 fL (80.0-100.0); Monocytes # (auto) 0.9 10 ^3/uL (0-1.3)
[2020-12-18 11:20] LABS: Eosinophils % (auto) 0.9 % (0.0-7.0); Hematocrit 34.9 % (41.0-53.0); Lymphocytes % (auto) 15.6 % (10.0-50.0); Mean Corpuscular Hemoglobin 30.2 pg (28.0-32.0); Mean Corpuscular Hgb Conc. 33.8 g/dL (32.0-36.0); Monocytes % (auto) 6.1 % (0.0-12.0); Neutrophils # (auto) 10.9 10 ^3/uL (1.6-8.6); Neutrophils % (auto) 76.5 % (37.0-80.0); Nucleated Red Blood Cells % 0.2 %; White Blood Cell 14.3 10^3/uL (4.4-10.8)
[2020-12-18 11:33] VITALS: BP 110/72
[2020-12-18 16:02] VITALS: BP 140/80
[2020-12-18] MEDS: INSULIN LANTUS (GLARGINE) 1 /0.01ml (100units/ml) SC SCH (22:24)
[2020-12-19 00:07] VITALS: BP 116/73
[2020-12-19] MEDS: ACCU-CHEK COMFORT CURVE STRIP VI SCH ×4 (06:17→22:00)
[2020-12-19] MEDS: InsuLIN REG 1unit/0.01ml Soln (100units/ml) SC SCH ×4 (06:17→22:00)
[2020-12-19 08:00] VITALS: BP 135/79
[2020-12-19] MEDS: ALPRAZolam 0.5 MG TAB PO SCH ×2 (08:59→20:01)
[2020-12-19] MEDS: BUDESONIDE (INHALATION) 180 MCG IH IN SCH ×2 (10:00→20:26)
[2020-12-19] MEDS: FUROSEMIDE 40 MG/4 ML VIAL IV SCH (10:30)
[2020-12-19] MEDS: ENOXAPARIN SOD 100 MG/1 ML SYRINGE SC SCH ×2 (10:30→22:40)
[2020-12-19] MEDS: PANTOPRAZOLE 40 MG TAB PO SCH (10:31)
[2020-12-19] MEDS: CHOLECALCIFEROL (VITD3) 2,000 UNIT CAP/TAB PO SCH (10:31)
[2020-12-19] MEDS: ASCORBIC ACID 1,000 MG TAB PO SCH (10:31)
[2020-12-19] MEDS: ZINC SULFATE 220mg CAP or TAB PO SCH (10:31)
[2020-12-19] MEDS: DOXYCYCLINE 100 MG TAB/CAP PO SCH ×2 (10:32→22:42)
[2020-12-19] MEDS: DexAMETHasone SOD PHOS 10MG/1ML VIAL INJ IV SCH (10:32)
[2020-12-19 10:56] LABS: INR 1.16 (0.9-1.15); Partial Thromboplastin Time 30.9 sec (23.0-31.2)
[2020-12-19 10:59] LABS: Potassium 3.6 mmol/L (3.5-5.1)
[2020-12-19 11:10] LABS: BUN/Creatinine Ratio 32.5; CRP High Sensitivity 10.5 mg/dL (< 0.3); Calcium 8.7 mg/dL (8.5-10.1)
[2020-12-19 13:05] LABS: Eosinophils # (auto) 0.2 10 ^3/uL (0-0.8); Monocytes # (auto) 0.7 10 ^3/uL (0-1.3); Nucleated Red Blood Cells % 0.1 %
[2020-12-19 13:06] LABS: Basophils # (auto) 0 10 ^3/uL (0-0.2); Basophils % (auto) 0.3 % (0.0-2.0); Eosinophils % (auto) 1.6 % (0.0-7.0); Hematocrit 38.4 % (41.0-53.0); Hemoglobin 12.9 g/dL (13.5-17.5); Lymphocytes # (auto) 1.1 10 ^3/uL (0.4-5.4); Lymphocytes % (auto) 7.9 % (10.0-50.0); Mean Corpuscular Hemoglobin 29.2 pg (28.0-32.0); Mean Corpuscular Hgb Conc. 33.6 g/dL (32.0-36.0); Monocytes % (auto) 5.1 % (0.0-12.0); Neutrophils # (auto) 11.6 10 ^3/uL (1.6-8.6); Neutrophils % (auto) 85.1 % (37.0-80.0); Red Blood Cells 4.42 10^6/uL (4.5-5.90); Red Cell Distribution Width 14.3 % (11.8-14.3); White Blood Cell 13.6 10^3/uL (4.4-10.8)
[2020-12-19 13:34] LABS: Platelet Count (auto) 134 10^3/uL (140-450)
[2020-12-19 16:00] VITALS: BP 115/85
[2020-12-19] MEDS: ALBUTEROL SULF HFA 90MCG INH 200DOSE IN PRN (20:26)
[2020-12-19] MEDS: INSULIN LANTUS (GLARGINE) 1 /0.01ml (100units/ml) SC SCH (22:00)
[2020-12-19] MEDS: METOPROLOL TARTRATE 25 MG TAB PO SCH (22:41)
[2020-12-20] VITALS: BP 111/67
[2020-12-20] MEDS: InsuLIN REG 1unit/0.01ml Soln (100units/ml) SC SCH ×4 (05:13→22:20)
[2020-12-20] MEDS: ACCU-CHEK COMFORT CURVE STRIP VI SCH ×4 (05:14→22:21)
[2020-12-20 06:34] LABS: Basophils # (auto) 0.1 10 ^3/uL (0-0.2); Eosinophils # (auto) 0.1 10 ^3/uL (0-0.8); Hemoglobin 11.3 g/dL (13.5-17.5); Monocytes # (auto) 0.6 10 ^3/uL (0-1.3)
[2020-12-20 06:36] LABS: Basophils % (auto) 0.9 % (0.0-2.0); Eosinophils % (auto) 1.1 % (0.0-7.0); Hematocrit 33.5 % (41.0-53.0); Lymphocytes # (auto) 2.2 10 ^3/uL (0.4-5.4); Lymphocytes % (auto) 16.9 % (10.0-50.0); Mean Corpuscular Hemoglobin 29.7 pg (28.0-32.0); Mean Corpuscular Hgb Conc. 33.8 g/dL (32.0-36.0); Mean Corpuscular Volume 87.7 fL (80.0-100.0); Monocytes % (auto) 4.8 % (0.0-12.0); Neutrophils # (auto) 9.9 10 ^3/uL (1.6-8.6); Neutrophils % (auto) 76.3 % (37.0-80.0); Nucleated Red Blood Cells % 0.1 %; Red Blood Cells 3.82 10^6/uL (4.5-5.90); Red Cell Distribution Width 14.2 % (11.8-14.3)
[2020-12-20 06:49] LABS: BUN/Creatinine Ratio 33.8; Calcium 8.6 mg/dL (8.5-10.1); Potassium 4.4 mmol/L (3.5-5.1)
[2020-12-20 06:59] LABS: CRP High Sensitivity 10.4 mg/dL (< 0.3)
[2020-12-20 07:25] LABS: Platelet Count (auto) 106 10^3/uL (140-450)
[2020-12-20 08:00] VITALS: BP 117/68
[2020-12-20] MEDS: ALPRAZolam 0.5 MG TAB PO SCH ×2 (09:18→22:16)
[2020-12-20] MEDS: ASCORBIC ACID 1,000 MG TAB PO SCH (09:19)
[2020-12-20] MEDS: PANTOPRAZOLE 40 MG TAB PO SCH (09:19)
[2020-12-20] MEDS: DOXYCYCLINE 100 MG TAB/CAP PO SCH ×2 (09:20→22:18)
[2020-12-20] MEDS: METOPROLOL TARTRATE 25 MG TAB PO SCH ×2 (09:20→22:17)
[2020-12-20] MEDS: ZINC SULFATE 220mg CAP or TAB PO SCH (09:20)
[2020-12-20] MEDS: FUROSEMIDE 40 MG/4 ML VIAL IV SCH (09:20)
[2020-12-20] MEDS: ENOXAPARIN SOD 100 MG/1 ML SYRINGE SC SCH ×2 (09:21→22:21)
[2020-12-20] MEDS: CHOLECALCIFEROL (VITD3) 2,000 UNIT CAP/TAB PO SCH (09:21)
[2020-12-20] MEDS: DexAMETHasone SOD PHOS 10MG/1ML VIAL INJ IV SCH (09:21)
[2020-12-20] MEDS: ALBUTEROL SULF HFA 90MCG INH 200DOSE IN PRN ×2 (09:57→20:40)
[2020-12-20] MEDS: BUDESONIDE (INHALATION) 180 MCG IH IN SCH ×2 (09:57→20:39)
[2020-12-20 16:00] VITALS: BP 103/64
[2020-12-20] MEDS: INSULIN LANTUS (GLARGINE) 1 /0.01ml (100units/ml) SC SCH (22:20)
[2020-12-21] VITALS: BP 113/76
[2020-12-21] MEDS: ACETAMINOPHEN 325 MG TAB PO PRN ×2 (03:03→23:48)
[2020-12-21] MEDS: InsuLIN REG 1unit/0.01ml Soln (100units/ml) SC SCH ×4 (06:18→22:18)
[2020-12-21 06:37] LABS: Potassium 3.1 mmol/L (3.5-5.1)
[2020-12-21] MEDS: ACCU-CHEK COMFORT CURVE STRIP VI SCH ×4 (06:41→22:16)
[2020-12-21 06:50] LABS: BUN/Creatinine Ratio 33.8; CRP High Sensitivity 7.41 mg/dL (< 0.3)
[2020-12-21 07:50] LABS: Basophils # (auto) 0.1 10 ^3/uL (0-0.2); Basophils % (auto) 0.7 % (0.0-2.0); Eosinophils # (auto) 0.1 10 ^3/uL (0-0.8); Eosinophils % (auto) 1.5 % (0.0-7.0); Lymphocytes # (auto) 2.2 10 ^3/uL (0.4-5.4); Lymphocytes % (auto) 22.9 % (10.0-50.0); Mean Corpuscular Hemoglobin 28.7 pg (28.0-32.0); Monocytes # (auto) 0.5 10 ^3/uL (0-1.3); Monocytes % (auto) 5.6 % (0.0-12.0); Neutrophils # (auto) 6.7 10 ^3/uL (1.6-8.6); Neutrophils % (auto) 69.3 % (37.0-80.0); Red Cell Distribution Width 14.2 % (11.8-14.3)
[2020-12-21 07:57] LABS: Hematocrit 36.6 % (41.0-53.0); Hemoglobin 12.1 g/dL (13.5-17.5); Platelet Count (auto) 140 10^3/uL (140-450); Red Blood Cells 4.21 10^6/uL (4.5-5.90); White Blood Cell 10.7 10^3/uL (4.4-10.8)
[2020-12-21 08:00] VITALS: BP 122/68
[2020-12-21] MEDS: FUROSEMIDE 40 MG/4 ML VIAL IV SCH (09:17)
[2020-12-21] MEDS: DexAMETHasone SOD PHOS 10MG/1ML VIAL INJ IV SCH (09:17)
[2020-12-21] MEDS: PANTOPRAZOLE 40 MG TAB PO SCH (09:18)
[2020-12-21] MEDS: ENOXAPARIN SOD 100 MG/1 ML SYRINGE SC SCH ×2 (09:18→22:16)
[2020-12-21] MEDS: ALPRAZolam 0.5 MG TAB PO SCH ×2 (09:18→22:14)
[2020-12-21] MEDS: ZINC SULFATE 220mg CAP or TAB PO SCH (09:18)
[2020-12-21] MEDS: DOXYCYCLINE 100 MG TAB/CAP PO SCH (09:19)
[2020-12-21] MEDS: ASCORBIC ACID 1,000 MG TAB PO SCH (09:19)
[2020-12-21] MEDS: CHOLECALCIFEROL (VITD3) 2,000 UNIT CAP/TAB PO SCH (09:19)
[2020-12-21] MEDS: METOPROLOL TARTRATE 25 MG TAB PO SCH ×2 (09:19→22:15)
[2020-12-21] MEDS: BUDESONIDE (INHALATION) 180 MCG IH IN SCH ×2 (09:33→18:59)
[2020-12-21 16:00] VITALS: BP 134/77
[2020-12-21] MEDS: guaiFENesin-DM 100/10mg/5ml SYR PO PRN ×2 (16:32→22:21)
[2020-12-21] MEDS: ALBUTEROL SULF HFA 90MCG INH 200DOSE IN PRN (19:01)
[2020-12-21] MEDS: INSULIN LANTUS (GLARGINE) 1 /0.01ml (100units/ml) SC SCH (22:17)
[2020-12-22] VITALS: BP 108/72
[2020-12-22] MEDS: InsuLIN REG 1unit/0.01ml Soln (100units/ml) SC SCH ×4 (06:54→22:11)
[2020-12-22] MEDS: ACCU-CHEK COMFORT CURVE STRIP VI SCH ×4 (06:54→22:05)
[2020-12-22 07:31] LABS: Potassium 3.5 mmol/L (3.5-5.1)
[2020-12-22 07:42] LABS: Basophils # (auto) 0.1 10 ^3/uL (0-0.2); Basophils % (auto) 0.9 % (0.0-2.0); Eosinophils # (auto) 0.2 10 ^3/uL (0-0.8); Eosinophils % (auto) 1.8 % (0.0-7.0); Hematocrit 35.3 % (41.0-53.0); Lymphocytes # (auto) 2.4 10 ^3/uL (0.4-5.4); Lymphocytes % (auto) 28.2 % (10.0-50.0); Mean Corpuscular Hemoglobin 29.1 pg (28.0-32.0); Mean Corpuscular Hgb Conc. 33.3 g/dL (32.0-36.0); Mean Corpuscular Volume 87.2 fL (80.0-100.0); Monocytes # (auto) 0.4 10 ^3/uL (0-1.3); Monocytes % (auto) 4.8 % (0.0-12.0); Neutrophils # (auto) 5.4 10 ^3/uL (1.6-8.6); Neutrophils % (auto) 64.3 % (37.0-80.0); Nucleated Red Blood Cells % 0.1 %
[2020-12-22 07:46] LABS: Hemoglobin 12.9 g/dL (13.5-17.5); Platelet Count (auto) 114 10^3/uL (140-450); Red Blood Cells 4.44 10^6/uL (4.5-5.90); White Blood Cell 9.2 10^3/uL (4.4-10.8)
[2020-12-22 07:58] LABS: BUN/Creatinine Ratio 34.7; CRP High Sensitivity 5.63 mg/dL (< 0.3)
[2020-12-22 08:00] VITALS: BP 125/79
[2020-12-22] MEDS: FUROSEMIDE 40 MG/4 ML VIAL IV SCH (09:39)
[2020-12-22] MEDS: DexAMETHasone SOD PHOS 10MG/1ML VIAL INJ IV SCH (09:39)
[2020-12-22] MEDS: METOPROLOL TARTRATE 25 MG TAB PO SCH ×2 (09:40→22:05)
[2020-12-22] MEDS: ZINC SULFATE 220mg CAP or TAB PO SCH (09:40)
[2020-12-22] MEDS: ASCORBIC ACID 1,000 MG TAB PO SCH (09:40)
[2020-12-22] MEDS: PANTOPRAZOLE 40 MG TAB PO SCH (09:40)
[2020-12-22] MEDS: ALPRAZolam 0.5 MG TAB PO SCH ×2 (09:41→22:04)
[2020-12-22] MEDS: ENOXAPARIN SOD 100 MG/1 ML SYRINGE SC SCH ×2 (09:41→22:04)
[2020-12-22] MEDS: CHOLECALCIFEROL (VITD3) 2,000 UNIT CAP/TAB PO SCH (09:41)
[2020-12-22] MEDS: BUDESONIDE (INHALATION) 180 MCG IH IN SCH ×2 (10:25→19:10)
[2020-12-22] MEDS: ALBUTEROL SULF HFA 90MCG INH 200DOSE IN PRN ×2 (13:43→19:10)
[2020-12-22] MEDS ORDERED: POLYETHYLENE GLYCOL 17 GM PWDR PO ONE (13:45)
[2020-12-22] MEDS: DOCUSATE SOD 100 MG CAP PO SCH ×2 (13:49→22:04)
[2020-12-22 16:00] VITALS: BP 104/67
[2020-12-22] MEDS ORDERED: PANT40T PO (17:13)
[2020-12-22] MEDS ORDERED: ALBUAER3 IN (17:13)
[2020-12-22] MEDS ORDERED: DOCU100C10 PO (17:13)
[2020-12-22] MEDS ORDERED: IPRIH IN (17:13)
[2020-12-22] MEDS ORDERED: MET25T PO (17:13)
[2020-12-22] MEDS ORDERED: FURO1TAB31 PO (17:13)
[2020-12-22] MEDS ORDERED: INSLANTI SC (17:13)
[2020-12-22] MEDS ORDERED: DEXT1SYP9 PO (17:13)
[2020-12-22] MEDS: INSULIN LANTUS (GLARGINE) 1 /0.01ml (100units/ml) SC SCH (22:11)
[2020-12-22 23:54] VITALS: BP 116/77
[2020-12-23] VITALS: BP 116/80
[2020-12-23] MEDS: ACETAMINOPHEN 325 MG TAB PO PRN (00:18)
== END 2020-12-23 01:03 | disposition hospice, home (50) | DRG 137 ==
LOC: ER 13:02 → TELE 13:03 → TELE-WESTW 12-18 10:58
PROVIDERS: ADMIT Internal Medicine; ATTEND Internal Medicine
PROC: XW033E5 Introduction of Remdesivir Anti-infective into Peripheral Vein, Percutaneous Approach, New Technology Group 5 (ICD-10-PCS; principal; 2020-12-13)
PROC: 5A09457 Assistance with Respiratory Ventilation, 24-96 Consecutive Hours, Continuous Positive Airway Pressure (ICD-10-PCS; 2020-12-14)
PROC: B54NZZA Ultrasonography of Left Upper Extremity Veins, Guidance (ICD-10-PCS; 2020-12-15)
PROC: 05HF33Z Insertion of Infusion Device into Left Cephalic Vein, Percutaneous Approach (ICD-10-PCS; 2020-12-15)
DX: U07.1 COVID-19 (principal); J12.82 Pneumonia due to coronavirus disease 2019; J96.01 Acute respiratory failure with hypoxia; D69.6 Thrombocytopenia, unspecified; J44.1 Chronic obstructive pulmonary disease with (acute) exacerbation; E87.6 Hypokalemia; E11.9 Type 2 diabetes mellitus without complications; F41.9 Anxiety disorder, unspecified; I10 Essential (primary) hypertension; Z68.36 Body mass index [BMI] 36.0-36.9, adult; E66.01 Morbid (severe) obesity due to excess calories; J98.11 Atelectasis; F17.210 Nicotine dependence, cigarettes, uncomplicated; J44.0 Chronic obstructive pulmonary disease with (acute) lower respiratory infection; K21.9 Gastro-esophageal reflux disease without esophagitis; Z82.49 Family history of ischemic heart disease and other diseases of the circulatory system; Z83.3 Family history of diabetes mellitus; Z87.442 Personal history of urinary calculi; J15.9 Unspecified bacterial pneumonia
CPT/HCPCS: 36415; 36600; 71045; 71275; 80048; 80053; 80307; 81001; 82728; 82805; 82962; 83605; 83615; 83735; 83880; 84484; 85007; 85025; 85027; 85379; 85610; 85730; 86141; 87040; 87081; 87426; 93970; 94640; 94660; 96365; 96366; 96367; 96375; G0378; J1100; J1815

== ENCOUNTER 2021-10-17 12:05 | Emergency (ER) | payer MEDICAID ==
[~2021-10-17] VITALS: Ht 175.3 cm; Wt 117.9 kg
[~2021-10-17 12:05] MED LIST changes: -DEX4T PO; +DEXT1SYP9 PO; +DOCU100C10 PO; -DOXY-286 PO; +FURO1TAB31 PO; +INSLANTI SC; +IPRIH IN; +MET25T PO; +PANT40T PO
[2021-10-17 13:51] LABS: Basophils # (auto) 0.1 10 ^3/uL (0-0.2); Basophils % (auto) 0.7 % (0.0-2.0); Eosinophils # (auto) 0.3 10 ^3/uL (0-0.8); Eosinophils % (auto) 3.5 % (0.0-7.0); Hematocrit 42.6 % (41.0-53.0); Lymphocytes # (auto) 2.5 10 ^3/uL (0.4-5.4); Lymphocytes % (auto) 30.7 % (10.0-50.0); Mean Corpuscular Hemoglobin 28.3 pg (28.0-32.0); Mean Corpuscular Hgb Conc. 32.8 g/dL (32.0-36.0); Mean Corpuscular Volume 86.2 fL (80.0-100.0); Monocytes # (auto) 0.8 10 ^3/uL (0-1.3); Monocytes % (auto) 9.4 % (0.0-12.0); Neutrophils # (auto) 4.5 10 ^3/uL (1.6-8.6); Neutrophils % (auto) 55.7 % (37.0-80.0); Nucleated Red Blood Cells % 0.2 %; Red Blood Cells 4.94 10^6/uL (4.5-5.90); White Blood Cell 8.1 10^3/uL (4.4-10.8)
[2021-10-17 14:11] LABS: Albumin 3.3 g/dL (3.4-5.0); Calcium 8.3 mg/dL (8.5-10.1); Potassium 4.2 mmol/L (3.5-5.1)
[2021-10-17 14:19] LABS: BUN/Creatinine Ratio 15.7; Bilirubin, Total 0.3 mg/dL (0.2-1.0)
[2021-10-17 16:13] LABS: Urine Bacteria NONE SEEN /hpf (None Seen); Urine Blood 3+ /uL (Negative); Urine Budding Yeast LOADED /hpf (None Seen); Urine WBC 3445 /hpf (0 - 3)
[2021-10-17 16:21] LABS: Urine Specific Gravity 1.025 (1.001-1.035)
[2021-10-17 22:05] VITALS: BP 150/72
== END 2021-10-17 22:12 | disposition home or self-care (01) ==
LOC: ER 12:05
DX: N39.0 Urinary tract infection, site not specified (principal); I10 Essential (primary) hypertension; E11.9 Type 2 diabetes mellitus without complications; F17.210 Nicotine dependence, cigarettes, uncomplicated; Z79.82 Long term (current) use of aspirin; Z79.4 Long term (current) use of insulin; Z79.899 Other long term (current) drug therapy
CPT/HCPCS: 36415; 80053; 81001; 85025

== ENCOUNTER 2021-12-02 18:14 | Emergency (ER) | payer MEDICAID ==
[~2021-12-02] VITALS: Ht 175.3 cm; Wt 113.4 kg
[2021-12-02 23:18] LABS: Basophils # (auto) 0.1 10 ^3/uL (0-0.2); Basophils % (auto) 1.2 % (0.0-2.0); Eosinophils # (auto) 0.2 10 ^3/uL (0-0.8); Eosinophils % (auto) 2.2 % (0.0-7.0); Hematocrit 37.1 % (41.0-53.0); Hemoglobin 12.4 g/dL (13.5-17.5); Lymphocytes # (auto) 2.4 10 ^3/uL (0.4-5.4); Lymphocytes % (auto) 32.6 % (10.0-50.0); Mean Corpuscular Hemoglobin 28.3 pg (28.0-32.0); Mean Corpuscular Hgb Conc. 33.4 g/dL (32.0-36.0); Mean Corpuscular Volume 84.8 fL (80.0-100.0); Monocytes # (auto) 0.6 10 ^3/uL (0-1.3); Monocytes % (auto) 7.8 % (0.0-12.0); Neutrophils # (auto) 4.2 10 ^3/uL (1.6-8.6); Neutrophils % (auto) 56.2 % (37.0-80.0); Red Blood Cells 4.38 10^6/uL (4.5-5.90); Red Cell Distribution Width 13.8 % (11.8-14.3); White Blood Cell 7.4 10^3/uL (4.4-10.8)
[2021-12-02 23:46] LABS: Albumin 3.3 g/dL (3.4-5.0); Anion Gap 11 (5-15); Blood Urea Nitrogen 8 mg/dL (7-18); Calcium 8.8 mg/dL (8.5-10.1); Carbon Dioxide 22 mmol/L (21-32); Chloride 104 mmol/L (98-107); Glucose 399 mg/dL (74-106); Potassium 4.2 mmol/L (3.5-5.1); Sodium 137 mmol/L (136-145)
[2021-12-02 23:49] LABS: Alanine Aminotransferase 67 U/L (16-61); Aspartate Aminotransferase 49 U/L (15-37); BUN/Creatinine Ratio 7.8; GFR African American 98 mL/min; GFR Non-African American 81 mL/min
[2021-12-02 23:58] LABS: Alkaline Phosphatase 144 U/L (45-117); Bilirubin, Total 0.3 mg/dL (0.2-1.0); Total Protein 7.7 g/dL (6.4-8.2)
[2021-12-03 02:48] LABS: Urine Bacteria NONE SEEN /hpf (None Seen); Urine Blood 3+ /uL (Negative); Urine Budding Yeast MANY /hpf (None Seen); Urine Mucus FEW (None Seen); Urine WBC 5579 /hpf (0 - 3); Urine WBC Clumps PRESENT /hpf (None Seen)
[2021-12-03 02:50] LABS: Urine Specific Gravity > 1.030 (1.001-1.035)
[2021-12-03] MEDS ORDERED: CEFD300C2 PO (03:19)
[2021-12-03 03:40] VITALS: BP 157/98
== END 2021-12-03 03:48 | disposition home or self-care (01) ==
LOC: ER 18:14
DX: N39.0 Urinary tract infection, site not specified (principal); I10 Essential (primary) hypertension; E11.9 Type 2 diabetes mellitus without complications; F17.210 Nicotine dependence, cigarettes, uncomplicated; Z79.82 Long term (current) use of aspirin; Z79.4 Long term (current) use of insulin; Z79.899 Other long term (current) drug therapy
CPT/HCPCS: 36415; 80053; 81001; 85025

== ENCOUNTER 2024-12-08 11:57 | Inpatient (IN) | payer MEDICAID ==
[~2024-12-08] VITALS: Ht 175.3 cm; Wt 123.3 kg
[~2024-12-08 11:57] MED LIST changes: +CEFD300C2 PO; +DOCU-265 PO; -DOCU100C10 PO
--- NOTE | 2024-12-08 12:22 | ECG ---
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
--- NOTE | 2024-12-08 12:55 | ED.PDOC ---
History of Present Illness HPI Comments 54M presents to the ER w/ an O2 tank brought from home, and w/ no prior Hx associated to the c/c of ABD pain. Pt reports that he has been having epigastric and RLQ pain for the past 4 days associated w/ Fever, chills, and Body Aches. PMHx of Anxiety, DM and HTN. Denies N/V/D, SOB, CP or other associated symptoms, modifiers or recent injuries or sick contact at this time. Chief Complaint: Abdominal Pain Time Seen by MD: 12:30 Primary Care Provider: TIA ZELAYA Reviewed Notes: Nurses Notes, Medications, Allergies Allergies: Coded Allergies: NO KNOWN ALLERGIES (Unverified , 08/15/17) Home Meds Active Scripts Cefdinir (Cefdinir) 300 Mg Cap, 1 CAP PO BID for 7 Days, #14 CAP Prov:ELLEN ALCARAZ MD 12/03/21 Ipratropium Joanna Hfa (Atrovent Hfa) 17 Mcg Aer, 17 MCG IN Q6HPRN PRN, #120 DOSE Prov:VERNA CRUZ MD 12/22/20 Furosemide (Lasix) 40 Mg Tab, 40 MG PO DAILY, #30 TAB Prov:VERNA CRUZ MD 12/22/20 Pantoprazole Sodium Sesquihydr (Pantoprazole Sodium) 40 Mg Tab, 40 MG PO DAILY, #30 TAB Prov:VERNA CRUZ MD 12/22/20 Metoprolol Tartrate (Lopressor) 25 Mg Tb, 12.5 MG PO BID, #30 TAB Prov:VERNA CRUZ MD 12/22/20 Insulin Glargine (Lantus) 100 Unit/Ml Inj, 15 UNITS SC HS, #1 VIAL Prov:VERNA CRUZ MD 12/22/20 Docusate Sodium (Docusate Sodium) 100 Mg Cap, 100 MG PO BID, #60 CAP Prov:VERNA CRUZ MD 12/22/20 Dextromethorphan-Guaifenesin (Robitussin-Dm) 10 Ml Sr, 10 ML PO Q4HP PRN, #1 BOT Prov:VERNA CRUZ MD 12/22/20 Albuterol Sulfate (VENTOLIN MDI) 90 Mcg Ih, 180 MCG IN Q6HPRN PRN, #1 INHALER Prov:VERNA CRUZ MD 12/22/20 Aspirin (Aspir-Low) 81 Mg Tab, 81 MG PO DAILY, #14 TAB Prov:LEYLA REBOLLAR MD 12/07/20 Famotidine (PEPCID TABLET) 20 Mg Tb, 1 TAB PO BID, #30 TAB Prov:LEYLA REBOLLAR MD 12/07/20 Information Source: Patient Mode of Arrival: Ambulatory Severity: Moderate Timing: Days Duration: Since onset, Days Prehospital treatment: None Past Medical History PAST MEDICAL HISTORY: Anxiety, DM, HTN Surgical History: Denies all surgeries Family History Family History: Reviewed,noncontributory to illness, Unobtainable Social History Smoker: Unknown Alcohol: Unknown Drugs: Unknown Lives In: Home Constitutional: reports: chills, fever, others (Body aches); denies: diaphoresis, fatigue, malaise, sweats, weakness EENTM: denies: blurred vision, double vision, ear bleeding, ear discharge, ear drainage, ear pain, ear ringing, eye pain, eye redness, hearing loss, mouth pain, mouth swelling, nasal discharge, nose bleeding, nose congestion, nose pain, photophobia, tearing, throat pain, throat swelling, voice changes, others Respiratory: denies: cough, hemoptysis, orthopnea, SOB at rest, shortness of breath, SOB with excertion, stridor, wheezing, others Cardiovascular: denies: chest pain, dizzy spells, diaphoresis, Dyspnea on exertion, edema, irregular heart beat, left arm pain, lightheadedness, palpitations, PND, syncope, others Gastrointestinal: reports: abdominal pain; denies: abdomen distended, blood streaked bowels, constipated, diarrhea, dysphagia, difficulty swallowing, hematemesis, melena, nausea, poor appetite, poor fluid intake, rectal bleeding, rectal pain, vomiting, others Genitourinary: denies: burning, dysuria, flank pain, frequency, hematuria, incontinence, penile discharge, penile sore, pain, testicle pain, testicle swelling, urgency, others Neurological: denies: dizziness, fainting, headache, left sided numbness, left sided weakness, numbness, paresthesia, pre-existing deficit, right sided numbness, right sided weakness, seizure, speech problems, tingling, tremors, weakness, others Musculoskeletal: denies: back pain, gout, joint pain, joint swelling, muscle pain, muscle stiffness, neck pain, others Integumetry: denies: bruises, change in color, change in hair/nails, dryness, laceration, lesions, lumps, rash, wounds, others Allergic/Immunocompromised: denies: Difficulty Healing, Frequent Infections, Hives, Itching, others Hematologic/Lymphatic: denies: anemia, blood clots, easy bleeding, easy bruising, swollen glands, others Endocrine: denies: excessive hunger, excessive sweating, excessive thirst, excessive urination, flushing, intolerance to cold, intolerance to heat, unexplained weight gain, unexplained weight loss, others Psychiatric: denies: anxiety, bipolar disorder, depression, hopeless, panic disorder, schizophrenia, sleepless, suicidal, others All Other Systems: Reviewed and Negative Physical Exam Exam Comments Slight palpitation General Appearance: No Apparent Distress, Normal HEENT: Normal ENT Inspection, Pharynx Normal, TMs Normal Neck: Full Range of Motion, Non-Tender, Normal, Normal Inspection Respiratory: Chest Non-Tender, Lungs Clear, No Accessory Muscle Use, No Respiratory Distress, Normal Breath Sounds Cardiovascular: No Edema, No JVD, No Murmur, No Gallop, Normal Peripheral Pulses, Other (Slight palpitation) Breast Exam: Deferred Gastrointestinal: No Organomegaly, Non Tender, No Pulsatile Mass, Normal Bowel Sounds, Soft Genitalia: Deferred Pelvic: Deferred Rectal: Deferred Extremities: No calf tenderness, Normal capillary refill, Normal inspection, Normal range of motion, Non-tender, No pedal edema Musculoskeletal : Apperance: Normal Neurologic: Alert, drafter mechanical II-XII nml as Tested, No Motor Deficits, Normal Affect, Normal Mood, No Sensory Deficits Cerebellar Function: Normal Reflexes: Normal Skin: Dry, Normal Color, Warm Lymphatic: No Adenopathy Was a procedure done? Was a procedure done?: No Differential Dx Considerations may include: Constipation, gastritis, gastroenteritis, testicular or ovarian torsion, pyelonephritis, UTI, abdominal mass, ischemic colitis, infectious colitis, a that is, ovarian cysts if female, PID, ectopic if female, biliary colic, hepatitis, nephrolithiasis X-Ray, Labs, Meds, VS Vital Signs Date Time Temp Pulse Resp B/P (MAP) Pulse Ox O2 Delivery O2 Flow Rate FiO2 12/08/24 16:00 76 18 99 Nasal Cannula 2.0 12/08/24 16:00 98.8 76 18 121/71 (88) 99 98.8 12/08/24 14:08 68 17 136/78 12/08/24 13:26 98.4 78 18 117/72 (87) 97 98.4 12/08/24 13:26 78 18 97 Room Air* 0 21 12/08/24 13:10 82 16 117/72 12/08/24 12:09 93 12/08/24 12:07 97.8 102 21 131/87 (102) 95 Lab Test 12/08/24 15:33 12/08/24 14:10 12/08/24 12:45 Range/Units Troponin I High Sensitivity < 3 L < 3 L < 3 L </=54 ng/L White Blood Count 14.7 H 4.4-10.8 10^3/uL Red Blood Count 5.12 4.5-5.90 10^6/uL Hemoglobin 15.0 13.5-17.5 g/dL Hematocrit 46.1 41.0-53.0 % Mean Corpuscular Volume 89.9 80.0-100.0 fL Mean Corpuscular Hemoglobin 29.3 28.0-32.0 pg Mean Corpuscular Hemoglobin Concent 32.6 32.0-36.0 g/dL Red Cell Distribution Width 14.5 H 11.8-14.3 % Platelet Count 195 140-450 10^3/uL Mean Platelet Volume 9.6 6.9-10.8 fL Neutrophils (%) (Auto) 80.5 H 37.0-80.0 % Lymphocytes (%) (Auto) 12.8 10.0-50.0 % Monocytes (%) (Auto) 5.7 0.0-12.0 % Eosinophils (%) (Auto) 0.6 0.0-7.0 % Basophils (%) (Auto) 0.4 0.0-2.0 % Neutrophils # (Auto) 11.9 H 1.6-8.6 10 ^3/uL Lymphocytes # (Auto) 1.9 0.4-5.4 10 ^3/uL Monocytes # (Auto) 0.8 0-1.3 10 ^3/uL Eosinophils # (Auto) 0.1 0-0.8 10 ^3/uL Basophils # (Auto) 0.1 0-0.2 10 ^3/uL Nucleated Red Blood Cells 0.1 % Sodium Level 137 136-145 mmol/L Potassium Level 3.8 3.5-5.1 mmol/L Chloride Level 99 98-107 mmol/L Carbon Dioxide Level 29 20-31 mmol/L Anion Gap 9 5-15 Blood Urea Nitrogen 14 9-23 mg/dL Creatinine 1.01 0.700-1.30 mg/dL Glomerular Filtration Rate Calc 89 >90 mL/min BUN/Creatinine Ratio 13.9 10.0-20.0 Serum Glucose 220 H 74-106 mg/dL Calcium Level 9.8 8.7-10.4 mg/dL Total Bilirubin 0.9 0.2-1.0 mg/dL Aspartate Amino Transferase (AST) 24 13-40 U/L Alanine Aminotransferase (ALT) 43 H 7-40 U/L Alkaline Phosphatase 108 46-116 U/L Total Protein 8.1 5.7-8.2 g/dL Albumin 4.6 3.2-4.8 g/dL Lipase 37 12-53 U/L Current Medications Medications (Trade) Dose Ordered Sig/Lizzette Route Start Time Stop Time Status Last Admin Metoclopramide HCl (Reglan Injection) 10 mg ONCE ONCE IV 12/08/24 12:30 12/08/24 12:31 DC 12/08/24 13:09 Morphine Sulfate 4 mg Q4HPRN PRN IV 12/08/24 12:30 12/08/24 13:10 Piperacillin Sod/ Tazobactam Sod 100 ml @ 100 mls/hr ONCE ONCE IV 12/08/24 14:30 12/08/24 15:29 DC 12/08/24 14:39 X-Ray, Labs, Meds, VS Comment Patient presents with a acute abdominal pain consistent with non perforated appendicitis. Case was discussed with medicine hospitalist as well as the on- call surgeon. The surgeon agreed to consult on this patient. Patient was treated with broad-spectrum antibiotics. Time of 1ST Reevaluation: 13:00 Reevaluation 1ST: Unchanged Patient Education/Counseling: Diagnosis, Treatment, Prognosis Family Education/Counseling: No Family Present Departure 1 Departure Time of Disposition: 16:55 Impression: Primary Impression: Acute appendicitis Additional Impression: Abdominal pain Disposition: 09 ADMITTED INPATIENT Admit to: Med Surg Condition: Guarded Critical Care Note Critical Care Time?: Yes (45 min-critical care time only) Critical care comment: CRITICAL CARE TIME: 45 minutes Treatments/Evaluations: Close monitoring and treatment of unstable vital signs, cardiorespiratory, and neurologic status, while maintaining tight balance of fluid, respiratory, and cardiac interventions. This time includes discussing the case with the patient and the patients family. This time does not include all procedures stated elsewhere in this record. This time also includes reviewing old records, labs and radiological studies. This time includes examining and re- examining the patient. Additionally, this time also includes arranging care with admitting and consulting physicians. Stability Stability form required: No I personally scribed for MAU DUVALL MD ([email or web address]) on 12/08/24 at 12:55. Electronically submitted by Sammy Thorpe ([email or web address]). MAU DUVALL MD Dec 08, 2024 12:55
[2024-12-08] MEDS: METOCLOPRAMIDE HCL 5MG/ml INJ 2ml VIAL IV ONE (13:09)
[2024-12-08] MEDS: MORPHINE SULFATE 4 MG/ML SYR/VIAL IV PRN (13:10)
[2024-12-08 13:26] VITALS: PULSE 78; RESP 18; O2SAT 97
[2024-12-08 13:28] LABS: Basophils # (auto) 0.1 10 ^3/uL (0-0.2); Basophils % (auto) 0.4 % (0.0-2.0); Eosinophils # (auto) 0.1 10 ^3/uL (0-0.8); Eosinophils % (auto) 0.6 % (0.0-7.0); Hematocrit 46.1 % (41.0-53.0); Lymphocytes # (auto) 1.9 10 ^3/uL (0.4-5.4); Lymphocytes % (auto) 12.8 % (10.0-50.0); Mean Corpuscular Hemoglobin 29.3 pg (28.0-32.0); Mean Corpuscular Hgb Conc. 32.6 g/dL (32.0-36.0); Mean Corpuscular Volume 89.9 fL (80.0-100.0); Monocytes # (auto) 0.8 10 ^3/uL (0-1.3); Monocytes % (auto) 5.7 % (0.0-12.0); Neutrophils # (auto) 11.9 10 ^3/uL (1.6-8.6); Neutrophils % (auto) 80.5 % (37.0-80.0); Nucleated Red Blood Cells % 0.1 %; Platelet Count (auto) 195 10^3/uL (140-450); Red Blood Cells 5.12 10^6/uL (4.5-5.90); Red Cell Distribution Width 14.5 % (11.8-14.3); White Blood Cell 14.7 10^3/uL (4.4-10.8)
[2024-12-08] MEDS: IOHEXOL 300 MG/ML 100ML BOTTLE IJ ONE (14:07)
[2024-12-08 14:08] LABS: Albumin 4.6 g/dL (3.2-4.8); Alkaline Phosphatase 108 U/L (46-116); Anion Gap 9 (5-15); Aspartate Aminotransferase 24 U/L (13-40); BUN/Creatinine Ratio 13.9 (10.0-20.0); Bilirubin, Total 0.9 mg/dL (0.2-1.0); Blood Urea Nitrogen 14 mg/dL (9-23); Calcium 9.8 mg/dL (8.7-10.4); Carbon Dioxide 29 mmol/L (20-31); Chloride 99 mmol/L (98-107); Lipase 37 U/L (12-53); Potassium 3.8 mmol/L (3.5-5.1); Sodium 137 mmol/L (136-145); Total Protein 8.1 g/dL (5.7-8.2)
--- NOTE | 2024-12-08 14:16 | DVH ---
Procedure: CT CT AB PEL WITH IV CON ONLY 12/08/2024 01:38 PM Indication: diffuse abd pain Comparison Study: None available at time of dictation. Technique: Axial images were obtained and reformatted in coronal and sagittal planes. All CT scans at this medical facility are performed using dose modulation techniques as appropriate t o a performed exam including the following: Automated exposure control was utilized; adjustment of th e MA and/or KV according to patient size; and use of iterative reconstruction technique. CT Dose: CTDI volume is 25 mGy. Dose-length product is 1769.8 mGy*cm FINDINGS: Lower neck: Unremarkable. Cardiomediastinal: The heart is normal in size. Aorta is normal in caliber. No mediastinal lymphadeno eileen. Lungs: No focal pulmonary opacity. No pleural effusion. No pneumothorax. Hepatobiliary: Hepatic steatosis. Cholelithiasis with no evidence of cholecystitis. No intrahepatic o r extrahepatic ductal dilatation noted. Spleen: Mildly enlarged, 14.5 cm in length. No focal lesion. Pancreas: Unremarkable. Adrenal Glands: Unremarkable. tract: The kidneys are normal in size bilaterally without hydronephrosis or nephrolithiasis. The urinary bladder is unremarkable. GI tract: The stomach is grossly normal in appearance. No evidence of small bowel obstruction. The la rge bowel is unremarkable. Dilated appendix measuring 1.4 cm with mural thickening periappendiceal f at stranding compatible with a acute appendicitis. No evidence of perforation, phlegmon or abscess fo rmation Lymphatics: Several subcentimeter mesenteric lymph nodes are seen in the right lower quadrant superio r to the appendix likely reactive in nature related to acute appendicitis. No retroperitoneal pelvic lymphadenopathy noted. Vasculature: Aorta is normal in caliber. Scattered calcified plaques are noted. Pelvic Organs: Mild prostatic hyperplasia. Bones/soft tissues: No acute abnormality. Degenerative changes of the lumbar spine noted. Small fat-c ontaining umbilical hernia. Other: None. IMPRESSION: 1. Acute noncomplicated appendicitis with no evidence of perforation, phlegmon or abscess formation. Recommend surgical consultation. 2. Mild splenomegaly. 3. Hepatic steatosis. 4. Cholelithiasis with no evidence of cholecystitis.
[2024-12-08 14:31] LABS: Alanine Aminotransferase 43 U/L (7-40); Glucose 220 mg/dL (74-106)
[2024-12-08] MEDS: PIPERACILLIN-TAZOB 3.375GM 100 ML IV ONE (14:39)
[2024-12-08 18:18] LABS: INR 1.05 (0.9-1.15); Partial Thromboplastin Time 28.7 SEC (24.5-34.5); Prothrombin Time 11.1 sec (9.3-11.8)
[2024-12-08 22:08] VITALS: BP 115/67; PULSE 94; RESP 18; TEMP 98.7; O2SAT 96
[2024-12-09] VITALS (13 sets, daily range): BP systolic 106–137; BP diastolic 64–77; PULSE 63–103; RESP 17–22; TEMP 97.5–98.7; O2SAT 94–100
[2024-12-09] MEDS ORDERED: MORPHINE SULFATE INJ 2 MG/ml SYRG IV PRN ×2 (00:30→11:45)
[2024-12-09] MEDS ORDERED: ONDANSETRON HCL 4 MG/2 ML VIAL IV PRN (00:30)
[2024-12-09] MEDS: D5W/SOD CHLO 0.9% 1,000 ML IV ONE (00:40)
[2024-12-09] MEDS: PIPERACILLIN-TAZOB 3.375GM 100 ML IV SCH (00:44)
[2024-12-09] MEDS: LIDOCAINE W/ EPINEPHRINE 1% 20ML VIAL ONE (07:33)
[2024-12-09] MEDS: BUPIVACAINE 0.25% INJ 50ML VIAL ONE (07:34)
[2024-12-09] MEDS ORDERED: MIDAZOLAM HCL 2MG/2ML 2ml VIAL (1mg/ml) ONE (07:39)
[2024-12-09] MEDS ORDERED: HYDROmorphone HCL 2 MG/ML VL/or syr ONE (07:39)
[2024-12-09] MEDS ORDERED: fentaNYL CITRATE 100 MCG/2 ML VL ONE (07:39)
[2024-12-09] MEDS ORDERED: ePHEDrine SULFATE 50 MG/ML AMP ONE (07:40)
[2024-12-09] MEDS ORDERED: DexAMETHasone SOD PHOS 10MG/1ML VIAL INJ ONE ×2 (07:40→09:00)
[2024-12-09] MEDS ORDERED: GLYCOPYRROLATE 0.2 MG/ML 1ML VIAL ONE (07:40)
[2024-12-09] MEDS ORDERED: PROPOFOL 10 MG/ML 20 ML IV ONE (07:40)
[2024-12-09] MEDS ORDERED: ONDANSETRON HCL 4 MG/2 ML VIAL ONE (07:40)
[2024-12-09] MEDS ORDERED: KETOROLAC TROMETH 30 MG/ML 1ML VIAL ONE (07:40)
[2024-12-09] MEDS ORDERED: LIDOCAINE HCL 100 MG/5ML (2%) SYRG INJ IV ONE (07:41)
[2024-12-09] MEDS ORDERED: ROCURONIUM 10MG/ML 10ML VIAL IV ONE (07:41)
[2024-12-09] MEDS ORDERED: KETAMINE 50mg/ML 1ml syringe ONE (08:30)
[2024-12-09] MEDS ORDERED: ETOMIDATE (2MG/ML) 20ML VIAL IV ONE (08:30)
--- NOTE | 2024-12-09 09:08 | DVHINCON2 ---
Date of service: Dec 09, 2024 Family History: Cardiovascular disease G8 MOTHER Diabetes mellitus G8 MOTHER G8 FATHER Allergies: Coded Allergies: NO KNOWN ALLERGIES (Unverified , 08/15/17) Home Meds Active Scripts Cefdinir (Cefdinir) 300 Mg Cap, 1 CAP PO BID for 7 Days, #14 CAP Prov:ELLEN ALCARAZ MD 12/03/21 Ipratropium Avalon Hfa (Atrovent Hfa) 17 Mcg Aer, 17 MCG IN Q6HPRN PRN, #120 DOSE Prov:VERNA CRUZ MD 12/22/20 Furosemide (Lasix) 40 Mg Tab, 40 MG PO DAILY, #30 TAB Prov:VERNA CRUZ MD 12/22/20 Pantoprazole Sodium Sesquihydr (Pantoprazole Sodium) 40 Mg Tab, 40 MG PO DAILY, #30 TAB Prov:VERNA CRUZ MD 12/22/20 Metoprolol Tartrate (Lopressor) 25 Mg Tb, 12.5 MG PO BID, #30 TAB Prov:VERNA CRUZ MD 12/22/20 Insulin Glargine (Lantus) 100 Unit/Ml Inj, 15 UNITS SC HS, #1 VIAL Prov:VERNA CRUZ MD 12/22/20 Docusate Sodium (Docusate Sodium) 100 Mg Cap, 100 MG PO BID, #60 CAP Prov:VERNA CRUZ MD 12/22/20 Dextromethorphan-Guaifenesin (Robitussin-Dm) 10 Ml Sr, 10 ML PO Q4HP PRN, #1 BOT Prov:VERNA CRUZ MD 12/22/20 Albuterol Sulfate (VENTOLIN MDI) 90 Mcg Ih, 180 MCG IN Q6HPRN PRN, #1 INHALER Prov:VERNA CRUZ MD 12/22/20 Aspirin (Aspir-Low) 81 Mg Tab, 81 MG PO DAILY, #14 TAB Prov:LEYLA REBOLLAR MD 12/07/20 Famotidine (PEPCID TABLET) 20 Mg Tb, 1 TAB PO BID, #30 TAB Prov:LEYLA REBOLLAR MD 12/07/20 Current Medications Current Medications Medications (Trade) Dose Ordered Sig/Lizzette Route PRN Reason Start Time Stop Time Status Last Admin Morphine Sulfate 4 mg Q4HPRN PRN IV SEVERE PAIN (7-10 PAIN SCALE) 12/08/24 12:30 12/08/24 22:08 Piperacillin Sod/ Tazobactam Sod 100 ml @ 100 mls/hr Q8H IV 12/09/24 00:45 12/09/24 00:44 Morphine Sulfate 2 mg Q4HPRN PRN IV pain 12/09/24 00:30 Hold Ondansetron HCl (Zofran) 4 mg Q4HPRN PRN IV NAUSEA / VOMITING 12/09/24 00:30 Vital Signs Vital Signs Date Time Temp Pulse Resp B/P (MAP) Pulse Ox O2 Delivery O2 Flow Rate FiO2 12/09/24 07:57 Nasal Cannula* 2 28 12/09/24 06:00 79 21 121/41 (67) 95 12/09/24 04:19 98.2 98.2 Labs/Diagnostic Data Labs Test 12/09/24 07:55 12/08/24 17:35 12/08/24 15:33 12/08/24 12:45 Range/Units POC Glucose 197 H 70-106 mg/dl Prothrombin Time 11.1 9.3-11.8 sec Prothrombin Time INR 1.05 0.9-1.15 Activated Partial Thromboplast Time 28.7 24.5-34.5 SEC Troponin I High Sensitivity < 3 L </=54 ng/L White Blood Count 14.7 H 4.4-10.8 10^3/uL Red Blood Count 5.12 4.5-5.90 10^6/uL Hemoglobin 15.0 13.5-17.5 g/dL Hematocrit 46.1 41.0-53.0 % Mean Corpuscular Volume 89.9 80.0-100.0 fL Mean Corpuscular Hemoglobin 29.3 28.0-32.0 pg Mean Corpuscular Hemoglobin Concent 32.6 32.0-36.0 g/dL Red Cell Distribution Width 14.5 H 11.8-14.3 % Platelet Count 195 140-450 10^3/uL Mean Platelet Volume 9.6 6.9-10.8 fL Neutrophils (%) (Auto) 80.5 H 37.0-80.0 % Lymphocytes (%) (Auto) 12.8 10.0-50.0 % Monocytes (%) (Auto) 5.7 0.0-12.0 % Eosinophils (%) (Auto) 0.6 0.0-7.0 % Basophils (%) (Auto) 0.4 0.0-2.0 % Neutrophils # (Auto) 11.9 H 1.6-8.6 10 ^3/uL Lymphocytes # (Auto) 1.9 0.4-5.4 10 ^3/uL Monocytes # (Auto) 0.8 0-1.3 10 ^3/uL Eosinophils # (Auto) 0.1 0-0.8 10 ^3/uL Basophils # (Auto) 0.1 0-0.2 10 ^3/uL Nucleated Red Blood Cells 0.1 % Sodium Level 137 136-145 mmol/L Potassium Level 3.8 3.5-5.1 mmol/L Chloride Level 99 98-107 mmol/L Carbon Dioxide Level 29 20-31 mmol/L Anion Gap 9 5-15 Blood Urea Nitrogen 14 9-23 mg/dL Creatinine 1.01 0.700-1.30 mg/dL Glomerular Filtration Rate Calc 89 >90 mL/min BUN/Creatinine Ratio 13.9 10.0-20.0 Serum Glucose 220 H 74-106 mg/dL Calcium Level 9.8 8.7-10.4 mg/dL Total Bilirubin 0.9 0.2-1.0 mg/dL Aspartate Amino Transferase (AST) 24 13-40 U/L Alanine Aminotransferase (ALT) 43 H 7-40 U/L Alkaline Phosphatase 108 46-116 U/L Total Protein 8.1 5.7-8.2 g/dL Albumin 4.6 3.2-4.8 g/dL Lipase 37 12-53 U/L Assessment PATIENT CAME TO THE ER WITH ONE WEEK HISTORY OF LOWER ABDOMINAL PAIN WAS FOUND ON CT SCANNING HAVING APPENDICITIS, WBC 14, NO PRIOR OPERATIONS, NON SMOKER, NON DRINKER, DENIES DRUG USE, HAS COPD (SINCE COVID0 AND IS OXYGEN DEPENDENT AT REST. ABDOMEN WITH RIGHT LOWER QUADRANT TENDERNESS AND GUARDING. LAPAROSCOPIC POSSIBLY OPEN APPENDECTOMY,RISKS AND COMPLICATIONS EXPLAINED IN DETAIL. Plan discussed with: Patient NIRMAL BAUMAN MD Dec 09, 2024 09:08
[2024-12-09] MEDS: ceFAZolin 2 GM/D5W100ml 100 ML IV ONE (09:25)
[2024-12-09] MEDS ORDERED: SUGAMMADEX 200mg/2ml Vial (100MG/ML) IV ONE (09:42)
[2024-12-09] MEDS ORDERED: NALOXONE HCL 0.4 MG/ML VIAL ONE (09:50)
[2024-12-09] MEDS ORDERED: D5W/SOD CHL 0.45%/KCL 20MEQ 1,000 ML IV ONE (10:00)
[2024-12-09] MEDS ORDERED: MIDAZOLAM DRIP 50 mg/50mL 50 ML IV SCH ×2 (10:00→10:15)
[2024-12-09] MEDS ORDERED: fentaNYL Drip 2500mCg/250mlNS 250 ML IV SCH (10:15)
--- NOTE | 2024-12-09 10:20 | DVHOP ---
DATE OF SURGERY: 12/09/2024 PREOPERATIVE DIAGNOSIS: Appendicitis. POSTOPERATIVE DIAGNOSES: * Appendicitis. * Morbid obesity. SURGEON: Sreedhar Shearer MD TUMBLER MACHINE OPERATOR HELPER: Von Fontenot NP ANESTHESIA: General endotracheal, Michael Long. PROCEDURE: Laparoscopy, laparoscopic appendectomy. DESCRIPTION OF PROCEDURE: Under general endotracheal anesthesia with the patient's skin prepped and draped, supraumbilical incision was made and Veress needle inserted into the peritoneal cavity by the hanging drop technique in order to establish pneumoperitoneum to 15 mmHg pressure by insufflation with carbon dioxide. With the abdomen fully distended, the needle was removed and replaced with a 5 mm trocar port through which a 0-degree viewing laparoscope was inserted and under direct vision, 5 and 10 mm ports inserted through the midline abdominal wall. Laparoscopy was hampered by the patient's morbid obesity. The omentum and cecum were adherent to the lateral abdominal wall and lysis of the adhesions was accomplished sharply and bluntly in order to be able to mobilize the cecum with some difficulty due to retrocecal phlegmon which contained the inflamed appendix. It was very difficult to mobilize the appendix due to the patient's morbid obesity, it was very difficult to trace the appendix all the way to the confluence with the cecum which was accomplished and at the base of the appendix at the confluence with the cecum an Endo AIMEE stapler was applied and the appendix and mesoappendix were divided flush with the cecum. The appendix and mesoappendix were removed from the peritoneal cavity by placement in a specimen extraction bag. The right lower quadrant was then profusely irrigated and irrigant was aspirated. Hemostasis was meticulously inspected and found to be complete. At the termination of procedure, there was no evidence of bleeding from either the appendicectomy site or from any of the port sites. Pneumoperitoneum was evacuated. Fascial defect closed using 0 Vicryl. Wounds approximated using Monocryl sutures, Dermabond glue, and Steri-Strips. The patient remained stable throughout the procedure, left the operating room following an accurate needle and sponge count. An attempt at communicating to his mother at [phone] was unsuccessful due to lack of answer. MD MALIK Pinzon/JESSIKA TID: [id number] RECEIPT: [id number]
[2024-12-09] MEDS: HYDROmorphone HCL 2 MG/ML VL/or syr IV PRN (10:42)
[2024-12-09] MEDS: ONDANSETRON HCL 4 MG/2 ML VIAL IV ONE (10:55)
[2024-12-09] MEDS ORDERED: ACCU-CHEK COMFORT CURVE STRIP VI SCH (11:30)
[2024-12-09] MEDS ORDERED: ALBUTEROL SULF 2.5 MG/0.5ML(0.5%) NEB SOLN NEB PRN (11:45)
[2024-12-09] MEDS ORDERED: hydrALAZINE HCL 20 MG/ML VL IV PRN (11:45)
[2024-12-09] MEDS ORDERED: NITROGLYCERIN 0.4 MG SL TAB SL PRN (11:45)
[2024-12-09] MEDS ORDERED: DEXTROSE (50%) 50ML SYRG IV PRN ×2 (11:45)
--- NOTE | 2024-12-09 11:45 | DVHHP2 ---
History of Present Illness Reason for Visit: Acute abdominal pain History of Present Illness 54M presents to the ER w/ an O2 tank brought from home, and w/ no prior Hx associated to the c/c of ABD pain. Pt reports that he has been having epigastric and RLQ pain for the past 4 days associated w/ Fever, chills, and Body Aches. PMHx of Anxiety, DM and HTN. Denies N/V/D, SOB, CP or other associated symptoms, modifiers or recent injuries or sick contact at this time. Patient is evaluated by general surgery and taken to the OR and underwent a successful appendectomy. Postop hospitalist sees auscultate med and further manage the patient. Currently he is stable in bed. Comfortable. Denies any chest pain or shortness for breath. Past Medical History Anxiety, DM, HTN Past Surgical History: None Family History: Hypertension Smoke: No ALCOHOL: occassional Lives: with Family Review of Systems Review of Systems No chest pain or shortness for breath. No fevers chills sweats. No headache. Other review of systems reviewed normal. Allergies: Coded Allergies: NO KNOWN ALLERGIES (Unverified , 08/15/17) Medications Current Medications Medications Dose Ordered Sig/Lizzette Route Start Time Stop Time Status Last Admin Dose Admin Morphine Sulfate 4 mg Q4HPRN PRN IV 12/08/24 12:30 12/08/24 22:08 4 MG Piperacillin Sod/ Tazobactam Sod 100 ml @ 100 mls/hr Q8H IV 12/09/24 00:45 12/09/24 00:44 100 MLS/HR Morphine Sulfate 2 mg Q4HPRN PRN IV 12/09/24 00:30 Hold Ondansetron HCl 4 mg Q4HPRN PRN IV 12/09/24 00:30 Hydromorphone HCl 0.5 mg [id number] PRN IV 12/09/24 10:30 Nitroglycerin 0.4 mg Q5MINP PRN SL 12/09/24 11:45 UNV Morphine Sulfate 2 mg Q30M PRN IV 12/09/24 11:45 UNV Diagnostic Test (Pha) 1 strip ACHS 12/09/24 11:30 UNV Insulin Human Regular ACHS SC 12/09/24 17:00 UNV Dextrose 50 ml UD PRN IV 12/09/24 11:45 UNV Exam Vital Signs Vital Signs Date Time Temp Pulse Resp B/P (MAP) Pulse Ox O2 Delivery O2 Flow Rate FiO2 12/09/24 10:15 103 19 98 Ambu-Bag 12/09/24 10:15 98 12/09/24 10:15 97.7 164/89 (114) 97.7 12/09/24 07:57 2 Exam In bed comfortable. Postop appendectomy. Alert and awake oriented to place and person. HEENT neck supple no JVD. Heart regular rate and rhythm S1 plus S2. Lungs fair air movement without any rales or wheezing. Abdomen is obese soft hypoactive bowel sounds. Extremities no edema. Labs/Xrays Labs Test 12/09/24 11:25 12/08/24 17:35 12/08/24 15:33 12/08/24 12:45 Range/Units POC Glucose 225 H 70-106 mg/dl Prothrombin Time 11.1 9.3-11.8 sec Prothrombin Time INR 1.05 0.9-1.15 Activated Partial Thromboplast Time 28.7 24.5-34.5 SEC Troponin I High Sensitivity < 3 L </=54 ng/L White Blood Count 14.7 H 4.4-10.8 10^3/uL Red Blood Count 5.12 4.5-5.90 10^6/uL Hemoglobin 15.0 13.5-17.5 g/dL Hematocrit 46.1 41.0-53.0 % Mean Corpuscular Volume 89.9 80.0-100.0 fL Mean Corpuscular Hemoglobin 29.3 28.0-32.0 pg Mean Corpuscular Hemoglobin Concent 32.6 32.0-36.0 g/dL Red Cell Distribution Width 14.5 H 11.8-14.3 % Platelet Count 195 140-450 10^3/uL Mean Platelet Volume 9.6 6.9-10.8 fL Neutrophils (%) (Auto) 80.5 H 37.0-80.0 % Lymphocytes (%) (Auto) 12.8 10.0-50.0 % Monocytes (%) (Auto) 5.7 0.0-12.0 % Eosinophils (%) (Auto) 0.6 0.0-7.0 % Basophils (%) (Auto) 0.4 0.0-2.0 % Neutrophils # (Auto) 11.9 H 1.6-8.6 10 ^3/uL Lymphocytes # (Auto) 1.9 0.4-5.4 10 ^3/uL Monocytes # (Auto) 0.8 0-1.3 10 ^3/uL Eosinophils # (Auto) 0.1 0-0.8 10 ^3/uL Basophils # (Auto) 0.1 0-0.2 10 ^3/uL Nucleated Red Blood Cells 0.1 % Sodium Level 137 136-145 mmol/L Potassium Level 3.8 3.5-5.1 mmol/L Chloride Level 99 98-107 mmol/L Carbon Dioxide Level 29 20-31 mmol/L Anion Gap 9 5-15 Blood Urea Nitrogen 14 9-23 mg/dL Creatinine 1.01 0.700-1.30 mg/dL Glomerular Filtration Rate Calc 89 >90 mL/min BUN/Creatinine Ratio 13.9 10.0-20.0 Serum Glucose 220 H 74-106 mg/dL Calcium Level 9.8 8.7-10.4 mg/dL Total Bilirubin 0.9 0.2-1.0 mg/dL Aspartate Amino Transferase (AST) 24 13-40 U/L Alanine Aminotransferase (ALT) 43 H 7-40 U/L Alkaline Phosphatase 108 46-116 U/L Total Protein 8.1 5.7-8.2 g/dL Albumin 4.6 3.2-4.8 g/dL Lipase 37 12-53 U/L Assessment/Plan Assessment/Plan Continue IV fluids. IV antibiotics. Pain and nausea medications. Incentive spirometry. DVT GI prophylaxis. Encouraged activity and ambulation. Follow the labs. Otherwise further clinical management per clinical course/postop recovery and recommendations from the general surgeon. Plan discussed with: Other My Orders Orders - LEYLA REBOLLAR MD Procedure Category Date Status Time Admit ADMIT 12/09/24 Transmitted 11:38 Oxygen By Nasal RT 12/09/24 Transmitted Cannula 11:38 Nitroglycerin PHA 12/09/24 Logged Sublingual (Ntrostat 11:45 Morphine Sulfate PHA 12/09/24 Logged Injection 11:45 Stat Ekg For Chest EMI 12/09/24 In Process Pain 11:38 Notify Of Changes EMI 12/09/24 In Process From Base 11:38 Strategic Marketing Associate For EMI 12/09/24 In Process 24 Hours 11:38 Emergency Dysrhythmia EMI 12/09/24 In Process Protocol 11:38 Rhythm Strips Once EMI 12/09/24 In Process Every Shift 11:38 Glucose Blood PHA 12/09/24 Logged (Accu-Chek Comfort 11:30 Insulin R (Human) PHA 12/09/24 Logged (Insulin R) 17:00 Dextrose 50% Syringe PHA 12/09/24 Logged 11:45 Npo Except Ice Chips ORDERS 12/09/24 Transmitted 11:40 Clear Liq Diet DIET 12/09/24 Transmitted Dinner Famotidine Injection PHA 12/10/24 Verified (Pepcid Injection) 10:00 Enoxaparin Sodium PHA 12/10/24 Verified (Lovenox) 10:00 Ondansetron Hcl PHA 12/09/24 Verified (Zofran) 11:45 Glucose Blood PHA 12/09/24 Verified (Accu-Chek Comfort 12:00 Mild Sliding Scale PHA 12/09/24 Verified Npo - Q6hr 12:00 Dextrose 50% Syringe PHA 12/09/24 Verified 11:45 D5w/Sod Chl 0.45% /2 PHA 12/09/24 Verified NS 11:45 Albuterol Medneb PHA 12/09/24 Verified (Ventolin Medneb) 11:45 Hydralazine Injection PHA 12/09/24 Verified (Apresoline Inject 11:45 Basic Metabolic Panel LAB 12/10/24 Verified 04:00 Complete Blood Count LAB 12/10/24 Verified 04:00 Problem List: (1) Acute appendicitis (2) Abdominal pain LEYLA REBOLLAR MD Dec 09, 2024 11:45
[2024-12-09] MEDS ORDERED: IPRATROPIUM BROM 0.5 MG/2.5ML INH SOL NEB PRN (12:00)
[2024-12-09] MEDS: ACCU-CHEK COMFORT CURVE STRIP VI SCH (14:41)
[2024-12-09] MEDS: InsuLIN REG 1unit/0.01ml Soln (100units/ml) SC SCH (14:49)
[2024-12-09] MEDS: metroNIDAZOLE 500MG/100ML 100 ML IV ONE (14:53)
[2024-12-09] MEDS: ceFAZolin 2 GM/D5W50ml 50 ML IV ONE (14:53)
[2024-12-09] MEDS: MORPHINE SULFATE INJ 2 MG/ml SYRG IV ONE (14:53)
[2024-12-09] MEDS: D5W/SOD CHL 0.45% 1,000 ML IV SCH (16:10)
[2024-12-09] MEDS ORDERED: InsuLIN REG 1unit/0.01ml Soln (100units/ml) SC SCH (17:00)
[2024-12-09] MEDS: METOPROLOL TARTRATE 25 MG TAB PO SCH (21:46)
[2024-12-10] VITALS (10 sets, daily range): BP systolic 103–144; BP diastolic 57–81; PULSE 55–67; RESP 17–20; TEMP 98.1–98.5; O2SAT 94–100
[2024-12-10] MEDS: ONDANSETRON HCL 4 MG/2 ML VIAL IV PRN (05:45)
[2024-12-10 09:39] LABS: Basophils # (auto) 0.1 10 ^3/uL (0-0.2); Basophils % (auto) 0.5 % (0.0-2.0); Eosinophils # (auto) 0.1 10 ^3/uL (0-0.8); Eosinophils % (auto) 0.3 % (0.0-7.0); Hematocrit 38.4 % (41.0-53.0); Hemoglobin 12.4 g/dL (13.5-17.5); Lymphocytes # (auto) 2.2 10 ^3/uL (0.4-5.4); Lymphocytes % (auto) 12.5 % (10.0-50.0); Mean Corpuscular Hemoglobin 29.4 pg (28.0-32.0); Mean Corpuscular Hgb Conc. 32.3 g/dL (32.0-36.0); Mean Corpuscular Volume 91.1 fL (80.0-100.0); Neutrophils # (auto) 14.2 10 ^3/uL (1.6-8.6); Neutrophils % (auto) 80.7 % (37.0-80.0); Nucleated Red Blood Cells % 0.2 %; Platelet Count (auto) 170 10^3/uL (140-450); Red Blood Cells 4.22 10^6/uL (4.5-5.90); Red Cell Distribution Width 14.1 % (11.8-14.3); White Blood Cell 17.6 10^3/uL (4.4-10.8)
[2024-12-10 09:48] LABS: Anion Gap 7 (5-15); Carbon Dioxide 28 mmol/L (20-31); Potassium 4.3 mmol/L (3.5-5.1)
[2024-12-10 09:50] LABS: Calcium 8.7 mg/dL (8.7-10.4)
[2024-12-10] MEDS: ENOXAPARIN SOD 40 MG/0.4 ML SYRINGE SC SCH (09:51)
[2024-12-10] MEDS: FAMOTIDINE (10MG/ML) 2ML VL IV SCH (09:52)
[2024-12-10 09:55] LABS: BUN/Creatinine Ratio 22.5 (10.0-20.0); Blood Urea Nitrogen 18 mg/dL (9-23); Chloride 98 mmol/L (98-107); Glucose 214 mg/dL (74-106); Sodium 133 mmol/L (136-145)
[2024-12-10 11:30] LABS: Platelet Estimate Adequate
--- NOTE | 2024-12-10 13:18 | DVHPN2 ---
Progress Note Date Seen: Dec 10, 2024 Medical Necessity Reason Pt with a Central, PICC or Fol: No Objective vital signs Vital Sign Date Time Temp Pulse Resp B/P (MAP) Pulse Ox O2 Delivery O2 Flow Rate FiO2 12/10/24 09:52 62 123/73 12/10/24 09:00 98.2 19 100 98.2 12/10/24 08:00 Room Air* 0 21 Total Intake and Output 12/09/24 12/09/24 12/10/24 15:00 23:00 07:00 Intake Total 200 ml 300 ml 1580 ml Balance 200 ml 300 ml 1580 ml medications Current Medications Medications Dose Ordered Sig/Lizzette Route Start Time Stop Time Status Last Admin Dose Admin Morphine Sulfate 4 mg Q4HPRN PRN IV 12/08/24 12:30 12/10/24 03:23 4 MG Piperacillin Sod/ Tazobactam Sod 100 ml @ 100 mls/hr Q8H IV 12/09/24 00:45 12/10/24 09:52 100 MLS/HR Morphine Sulfate 2 mg Q4HPRN PRN IV 12/09/24 00:30 Hold Nitroglycerin 0.4 mg Q5MINP PRN SL 12/09/24 11:45 Morphine Sulfate 2 mg Q30M PRN IV 12/09/24 11:45 Famotidine 20 mg DAILY IV 12/10/24 10:00 12/10/24 09:52 20 MG Enoxaparin Sodium 40 mg DAILY SC 12/10/24 10:00 12/10/24 09:51 40 MG Ondansetron HCl 4 mg Q4HPRN PRN IV 12/09/24 11:45 12/10/24 05:45 4 MG Diagnostic Test (Pha) 1 strip Q6HR 12/09/24 12:00 12/10/24 11:55 1 STRIP Insulin Human Regular Q6HR SC 12/09/24 12:00 12/10/24 12:06 4 UNITS Dextrose 50 ml UD PRN IV 12/09/24 11:45 Dextrose/Sodium Chloride 1,000 ml @ 75 mls/hr [id number] IV 12/09/24 11:45 12/09/24 16:10 75 MLS/HR Albuterol 2.5 mg Q4HPRN PRN NEB 12/09/24 11:45 Hydralazine HCl 10 mg Q6HP PRN IV 12/09/24 11:45 Metoprolol Tartrate 12.5 mg BID PO 12/09/24 22:00 12/10/24 09:52 12.5 MG Ipratropium [place]ie 0.5 mg Q4HPRN PRN NEB 12/09/24 12:00 laboratory and microbiology Laboratory Tests 12/10/24 08:54 Test 12/10/24 08:54 Range/Units Serum Glucose 214 H 74-106 mg/dL Problem List/Assessment/Plan Problem List/Assessment/Plan 12/10/24PATIENT'S COUSIN AT BEDSIDE, ABDOMEN APPROPRIATELY TENDER, NON DISTENDED, HAS AMBULATED, ASKING FOR SOLID PO, Plan discussed with: Patient, Other NIRMAL BAUMAN MD Dec 10, 2024 13:18
--- NOTE | 2024-12-10 17:25 | DVHPN2 ---
Progress Note - Dictate Date Seen: Dec 10, 2024 Medical Necessity Reason Pt with a Central, PICC or Fol: No Subjective Tolerating clear liquid diet. Pain is improved. Ambulating. Passing flatus. vital signs Vital Sign Date Time Temp Pulse Resp B/P (MAP) Pulse Ox O2 Delivery O2 Flow Rate FiO2 12/10/24 16:43 98.5 55 20 103/57 (72) 99 98.5 12/10/24 10:00 Nasal Cannula* 4 36 Total Intake and Output 12/09/24 12/09/24 12/10/24 15:00 23:00 07:00 Intake Total 200 ml 300 ml 1580 ml Balance 200 ml 300 ml 1580 ml medications Current Medications Medications Dose Ordered Sig/Lizzette Route Start Time Stop Time Status Last Admin Dose Admin Morphine Sulfate 4 mg Q4HPRN PRN IV 12/08/24 12:30 12/10/24 03:23 4 MG Piperacillin Sod/ Tazobactam Sod 100 ml @ 100 mls/hr Q8H IV 12/09/24 00:45 12/10/24 16:01 100 MLS/HR Nitroglycerin 0.4 mg Q5MINP PRN SL 12/09/24 11:45 Morphine Sulfate 2 mg Q30M PRN IV 12/09/24 11:45 Famotidine 20 mg DAILY IV 12/10/24 10:00 12/10/24 09:52 20 MG Enoxaparin Sodium 40 mg DAILY SC 12/10/24 10:00 12/10/24 09:51 40 MG Ondansetron HCl 4 mg Q4HPRN PRN IV 12/09/24 11:45 12/10/24 05:45 4 MG Diagnostic Test (Pha) 1 strip Q6HR 12/09/24 12:00 12/10/24 11:55 1 STRIP Insulin Human Regular Q6HR SC 12/09/24 12:00 12/10/24 12:06 4 UNITS Dextrose 50 ml UD PRN IV 12/09/24 11:45 Dextrose/Sodium Chloride 1,000 ml @ 75 mls/hr [id number] IV 12/09/24 11:45 12/10/24 15:18 75 MLS/HR Albuterol 2.5 mg Q4HPRN PRN NEB 12/09/24 11:45 Hydralazine HCl 10 mg Q6HP PRN IV 12/09/24 11:45 Metoprolol Tartrate 12.5 mg BID PO 12/09/24 22:00 12/10/24 09:52 12.5 MG Ipratropium [place] 0.5 mg Q4HPRN PRN NEB 12/09/24 12:00 objective Abdomen soft nontender positive bowel sounds. laboratory and microbiology Laboratory Tests 12/10/24 08:54 Test 12/10/24 08:54 Range/Units Serum Glucose 214 H 74-106 mg/dL Assessment/Plan We will stop the IV fluids. Advance diet to full liquids for dinner and tolerates soft for breakfast. Continue antibiotics. Follow the labs. If he remains stable consider discharge home tomorrow. Discussed with the patient and nurse regarding care plan. Problems(with codes): (1) Abdominal pain (2) Acute appendicitis Plan discussed with: Other LEYLA REBOLLAR MD Dec 10, 2024 17:25
[2024-12-11] VITALS (8 sets, daily range): BP systolic 111–142; BP diastolic 55–81; PULSE 55–110; RESP 16–18; TEMP 97.7–98.4; O2SAT 92–99
[2024-12-11] MEDS: HYDROcodone-ACET 5/325MG TAB PO PRN (10:16)
[2024-12-11 10:32] LABS: Basophils # (auto) 0.1 10 ^3/uL (0-0.2); Basophils % (auto) 0.7 % (0.0-2.0); Eosinophils # (auto) 0.3 10 ^3/uL (0-0.8); Eosinophils % (auto) 3.5 % (0.0-7.0); Hematocrit 38.3 % (41.0-53.0); Hemoglobin 12.5 g/dL (13.5-17.5); Lymphocytes # (auto) 2.9 10 ^3/uL (0.4-5.4); Lymphocytes % (auto) 35.9 % (10.0-50.0); Mean Corpuscular Hemoglobin 29.5 pg (28.0-32.0); Mean Corpuscular Hgb Conc. 32.7 g/dL (32.0-36.0); Mean Corpuscular Volume 90.1 fL (80.0-100.0); Monocytes # (auto) 0.5 10 ^3/uL (0-1.3); Monocytes % (auto) 6.6 % (0.0-12.0); Neutrophils # (auto) 4.2 10 ^3/uL (1.6-8.6); Neutrophils % (auto) 53.3 % (37.0-80.0); Platelet Count (auto) 166 10^3/uL (140-450); Red Blood Cells 4.25 10^6/uL (4.5-5.90); Red Cell Distribution Width 14.1 % (11.8-14.3)
[2024-12-11 10:49] LABS: Anion Gap 7 (5-15); Carbon Dioxide 27 mmol/L (20-31); Chloride 101 mmol/L (98-107); Potassium 3.7 mmol/L (3.5-5.1)
[2024-12-11 10:50] LABS: Calcium 9.1 mg/dL (8.7-10.4)
[2024-12-11 10:55] LABS: BUN/Creatinine Ratio 11.8 (10.0-20.0); Blood Urea Nitrogen 10 mg/dL (9-23); Glucose 229 mg/dL (74-106); Sodium 135 mmol/L (136-145)
--- NOTE | 2024-12-11 12:59 | DVHPN2 ---
Progress Note Date Seen: Dec 11, 2024 Medical Necessity Reason Pt with a Central, PICC or Fol: No Subjective Patient reports: No new complaints, Feels better Review of Systems: HEENT:Normal, CVS:Normal, RESPIRATORY:Normal, GI:Normal, :Normal, MSK:Normal, NEURO:Normal Objective vital signs Vital Sign Date Time Temp Pulse Resp B/P (MAP) Pulse Ox O2 Delivery O2 Flow Rate FiO2 12/11/24 10:15 67 126/74 12/11/24 09:00 98.3 16 92 98.3 12/11/24 08:00 Nasal Cannula* 2 28 Total Intake and Output 12/10/24 12/10/24 12/11/24 15:00 23:00 07:00 Intake Total 100 ml 772 ml 600 ml Output Total 1900 ml Balance 100 ml -1128 ml 600 ml medications Current Medications Medications Dose Ordered Sig/Lizzette Route Start Time Stop Time Status Last Admin Dose Admin Piperacillin Sod/ Tazobactam Sod 100 ml @ 100 mls/hr Q8H IV 12/09/24 00:45 12/11/24 10:16 100 MLS/HR Nitroglycerin 0.4 mg Q5MINP PRN SL 12/09/24 11:45 Morphine Sulfate 2 mg Q30M PRN IV 12/09/24 11:45 Enoxaparin Sodium 40 mg DAILY SC 12/10/24 10:00 12/11/24 10:16 40 MG Ondansetron HCl 4 mg Q4HPRN PRN IV 12/09/24 11:45 12/10/24 05:45 4 MG Diagnostic Test (Pha) 1 strip Q6HR 12/09/24 12:00 12/11/24 11:31 1 STRIP Insulin Human Regular Q6HR SC 12/09/24 12:00 12/11/24 11:31 3 UNITS Dextrose 50 ml UD PRN IV 12/09/24 11:45 Albuterol 2.5 mg Q4HPRN PRN NEB 12/09/24 11:45 Hydralazine HCl 10 mg Q6HP PRN IV 12/09/24 11:45 Metoprolol Tartrate 12.5 mg BID PO 12/09/24 22:00 12/11/24 10:15 12.5 MG Ipratropium [place] 0.5 mg Q4HPRN PRN NEB 12/09/24 12:00 Acetaminophen/ Hydrocodone Bitart 1 tab Q4HPRN PRN PO 12/11/24 09:15 12/11/24 10:16 1 TAB Examination: GENERAL:Normal, HEENT:Normal, NECK:Normal, LUNGS:Normal, CVS:Normal, ABDOMEN:Normal, MSK:Normal, SKIN:Normal, NEURO:Normal laboratory and microbiology Laboratory Tests 12/11/24 10:00 Test 12/11/24 10:00 Range/Units Serum Glucose 229 H 74-106 mg/dL Problem List/Assessment/Plan Problem List/Assessment/Plan 12/11/24 no new complaints , abdomen soft, non distended, appropriately tender, wound clean dry and intact, ambulate every 4 hours, bowel activity, continue IV antibiotics , ok to discharge in 24 hours Plan discussed with: Patient, Other (Dr. stephenson) SUYAPA HARLEY MEDICAL PRACTICE MANAGER Dec 11, 2024 12:59
[2024-12-11] MEDS ORDERED: HYDR-4902 PO (15:52)
[2024-12-11] MEDS ORDERED: AMOX500T86 PO (15:52)
--- NOTE | 2024-12-11 15:53 | DVHDS2 ---
Discharge Summary Date of Admission Dec 09, 2024 at 11:38 Date of Discharge: Dec 11, 2024 Labs/Diagnostic Data: Laboratory Results Test 12/11/24 11:27 12/11/24 10:00 12/10/24 08:54 12/09/24 20:55 POC Glucose 196 mg/dl (70-106) White Blood Count 8.0 10^3/uL (4.4-10.8) Red Blood Count 4.25 10^6/uL (4.5-5.90) Hemoglobin 12.5 g/dL (13.5-17.5) Hematocrit 38.3 % (41.0-53.0) Mean Corpuscular Volume 90.1 fL (80.0-100.0) Mean Corpuscular Hemoglobin 29.5 pg (28.0-32.0) Mean Corpuscular Hemoglobin Concent 32.7 g/dL (32.0-36.0) Red Cell Distribution Width 14.1 % (11.8-14.3) Platelet Count 166 10^3/uL (140-450) Mean Platelet Volume 9.7 fL (6.9-10.8) Neutrophils (%) (Auto) 53.3 % (37.0-80.0) Lymphocytes (%) (Auto) 35.9 % (10.0-50.0) Monocytes (%) (Auto) 6.6 % (0.0-12.0) Eosinophils (%) (Auto) 3.5 % (0.0-7.0) Basophils (%) (Auto) 0.7 % (0.0-2.0) Neutrophils # (Auto) 4.2 10 ^3/uL (1.6-8.6) Lymphocytes # (Auto) 2.9 10 ^3/uL (0.4-5.4) Monocytes # (Auto) 0.5 10 ^3/uL (0-1.3) Eosinophils # (Auto) 0.3 10 ^3/uL (0-0.8) Basophils # (Auto) 0.1 10 ^3/uL (0-0.2) Nucleated Red Blood Cells 0.0 % Sodium Level 135 mmol/L (136-145) Potassium Level 3.7 mmol/L (3.5-5.1) Chloride Level 101 mmol/L (98-107) Carbon Dioxide Level 27 mmol/L (20-31) Anion Gap 7 (5-15) Blood Urea Nitrogen 10 mg/dL (9-23) Creatinine 0.85 mg/dL (0.700-1.30) Glomerular Filtration Rate Calc 104 mL/min (>90) BUN/Creatinine Ratio 11.8 (10.0-20.0) Serum Glucose 229 mg/dL (74-106) Calcium Level 9.1 mg/dL (8.7-10.4) Platelet Estimate Adequate Clumped Platelets None Test 12/08/24 17:35 12/08/24 15:33 12/08/24 12:45 Prothrombin Time 11.1 sec (9.3-11.8) Prothrombin Time INR 1.05 (0.9-1.15) Activated Partial Thromboplast Time 28.7 SEC (24.5-34.5) Troponin I High Sensitivity < 3 ng/L (</=54) Total Bilirubin 0.9 mg/dL (0.2-1.0) Aspartate Amino Transferase (AST) 24 U/L (13-40) Alanine Aminotransferase (ALT) 43 U/L (7-40) Alkaline Phosphatase 108 U/L (46-116) Total Protein 8.1 g/dL (5.7-8.2) Albumin 4.6 g/dL (3.2-4.8) Lipase 37 U/L (12-53) Other Laboratory Tests 12/11/24 10:00 Brief Hx & Hospital Course: 54M presents to the ER w/ an O2 tank brought from home, and w/ no prior Hx associated to the c/c of ABD pain. Pt reports that he has been having epigastric and RLQ pain for the past 4 days associated w/ Fever, chills, and Body Aches. PMHx of Anxiety, DM and HTN. Denies N/V/D, SOB, CP or other associated symptoms, modifiers or recent injuries or sick contact at this time. Patient is evaluated by general surgery and taken to the OR and underwent a successful appendectomy. Postop hospitalist sees auscultate med and further manage the patient. Currently he is stable in bed. Comfortable. Denies any chest pain or shortness for breath. Postop patient recovery is uneventful. He is tolerating diet. Having flatus. His abdominal pain has improved. He is ambulating. Overall given patient is clinically stable it is felt he could be safely discharged home rest of close outpatient follow up as mentioned. Patient verbalized understanding of his hospital diagnosis, treatment he received, hospital course, discharge medications, discharge instructions and agree with the follow up plan of care. Operations or Procedures DATE OF SURGERY: 12/09/2024 PREOPERATIVE DIAGNOSIS: Appendicitis. POSTOPERATIVE DIAGNOSES: * Appendicitis. * Morbid obesity. SURGEON: Sreedhar Shearer MD NUTRITION TECH: [place] NP ANESTHESIA: General endotracheal, Michael Long. PROCEDURE: Laparoscopy, laparoscopic appendectomy. DESCRIPTION OF PROCEDURE: Under general endotracheal anesthesia with the patient's skin prepped and draped, supraumbilical incision was made and Veress needle inserted into the peritoneal cavity by the hanging drop technique in order to establish pneumoperitoneum to 15 mmHg pressure by insufflation with carbon dioxide. With the abdomen fully distended, the needle was removed and replaced with a 5 mm trocar port through which a 0-degree viewing laparoscope was inserted and under direct vision, 5 and 10 mm ports inserted through the midline abdominal wall. Laparoscopy was hampered by the patient's morbid obesity. The omentum and cecum were adherent to the lateral abdominal wall and lysis of the adhesions was accomplished sharply and bluntly in order to be able to mobilize the cecum with some difficulty due to retrocecal phlegmon which contained the inflamed appendix. It was very difficult to mobilize the appendix due to the patient's morbid obesity, it was very difficult to trace the appendix all the way to the confluence with the cecum which was accomplished and at the base of the appendix at the confluence with the cecum an Endo AIMEE stapler was applied and the appendix and mesoappendix were divided flush with the cecum. The appendix and mesoappendix were removed from the peritoneal cavity by placement in a specimen extraction bag. The right lower quadrant was then profusely irrigated and irrigant was aspirated. Hemostasis was meticulously inspected and found to be complete. At the termination of procedure, there was no evidence of bleeding from either the appendicectomy site or from any of the port sites. Pneumoperitoneum was evacuated. Fascial defect closed using 0 Vicryl. Wounds approximated using Monocryl sutures, Dermabond glue, and Steri-Strips. The patient remained stable throughout the procedure, left the operating room following an accurate needle and sponge count. An attempt at communicating to his mother at [phone] was unsuccessful due to lack of answer. MD MALIK Pinzon/JESSIKA TID: [id number] RECEIPT: [id number] Condition at Discharge: Stable Final Diagnosis/Problems List Acute appendicitis status post laparoscopic appendectomy Discharge Disposition: Home Discharge Instruct/Medications Diet: Consistent carbohydrate, Cardiac 2g Na,low cholest Activity: No Restrictions, As Tolerated Follow Up/Referral: Surgeon Dr. Shearer next week in his office Medications: As prescribed and home medications per discharge med list New Medications: Amoxicillin & Pot Clavulanate (Augmentin) 500 Mg Tab 1 TAB PO BID, #10 TAB Hydrocodone-Acetaminophen (Hydrocodone Bitartrate/AC 5-325 mg) 1 Tab Tab 1 TAB PO Q6HPRN PRN, #10 TAB Continued Medications: Albuterol Sulfate (Ventolin Mdi) 90 Mcg Ih 180 MCG IN Q6HPRN PRN, #1 INHALER Aspirin (Aspir-Low) 81 Mg Tab 81 MG PO DAILY, #14 TAB Docusate Sodium (Docusate Sodium) 100 Mg Cap 100 MG PO BID, #60 CAP Famotidine (Pepcid Tablet) 20 Mg Tb 1 TAB PO BID, #30 TAB Furosemide (Lasix) 40 Mg Tab 40 MG PO DAILY, #30 TAB Insulin Glargine (Lantus) 100 Unit/Ml Inj 15 UNITS SC HS, #1 VIAL Ipratropium [place] Hfa (Atrovent Hfa) 17 Mcg Aer 17 MCG IN Q6HPRN PRN, #120 DOSE Metoprolol Tartrate (Lopressor) 25 Mg Tb 12.5 MG PO BID, #30 TAB Pantoprazole Sodium Sesquihydr (Pantoprazole Sodium) 40 Mg Tab 40 MG PO DAILY, #30 TAB Discontinued Medications: Cefdinir (Cefdinir) 300 Mg Cap 1 CAP PO BID for 7 Days, #14 CAP Dextromethorphan-Guaifenesin (Robitussin-Dm) 10 Ml Sr 10 ML PO Q4HP PRN, #1 BOT Discharge Statement: "Patient was advised to return to the ER or call 911 if any headaches, dizziness, shortness of breath, chest pain, abdominal pain, bleeding, fevers, or worsening of medical condition. Patient was counseled about treatment plan, medications, possible side effects, patientverbalized understanding. All questions were answered to the best of my ability. This discharge took greater then 30 minutes in planning, reviewing documentation, counseling the patient, and discussing with other team members." ASSESSMENT ASSESSMENT Assessment Acute appendicitis status post laparoscopic appendectomy LEYLA REBOLLAR MD Dec 11, 2024 15:53
[2024-12-12 10:09] LABS: Hepatitis B Surface Antigen Negative (Negative); Hepatitis C Antibody Negative (Negative)
== END 2024-12-11 17:00 | disposition home or self-care (01) | DRG 234 ==
LOC: ER 11:57 → TELE-WESTW 12-09 11:38
PROVIDERS: ADMIT Hospitalist; ATTEND Hospitalist
PROC: 0DTJ4ZZ Resection of Appendix, Percutaneous Endoscopic Approach (ICD-10-PCS; principal; 2024-12-09 08:58)
DX: K35.80 Unspecified acute appendicitis (principal); R65.10 Systemic inflammatory response syndrome (SIRS) of non-infectious origin without acute organ dysfunction; R71.0 Precipitous drop in hematocrit; E11.9 Type 2 diabetes mellitus without complications; E66.01 Morbid (severe) obesity due to excess calories; K66.0 Peritoneal adhesions (postprocedural) (postinfection); I10 Essential (primary) hypertension; Z82.49 Family history of ischemic heart disease and other diseases of the circulatory system; Z83.3 Family history of diabetes mellitus; Z68.41 Body mass index [BMI] 40.0-44.9, adult; Z79.82 Long term (current) use of aspirin; Z79.51 Long term (current) use of inhaled steroids; Z79.899 Other long term (current) drug therapy
CPT/HCPCS: 36415; 74177; 80048; 80053; 82962; 83690; 84484; 85025; 85610; 85730; 86803; 86850; 86900; 86901; 87040; 87340; 93005; 99291; G0378; J1100; J1815; J1885; J2250; J2405; J2543; J2704; J3490

== ENCOUNTER 2024-12-24 15:38 | Inpatient (IN) | payer MEDICAID ==
[~2024-12-24] VITALS: Ht 175.3 cm; Wt 126.5 kg
[~2024-12-24 15:38] MED LIST changes: +AMOX500T86 PO; -CEFD300C2 PO; -DEXT1SYP9 PO; +HYDR-4902 PO
--- NOTE | 2024-12-24 16:34 | ED.PDOC ---
GI ASSESSMENT HPI Comments HPI: Poor Historian. 54-year-old male presents to emergency department by EMS from home for evaluation of postoperative right lower quadrant pain. Patient had an appendectomy done at our facility on the 15 of this month. Patient started developing nausea but no vomiting and constant right lower quadrant pain in the last two days. Denies any other acute symptoms. Past Medcial History: Past Surgical History: Appendectomy REVIEW OF SYSTEMS: CONSTITUTIONAL: Denies acute: fever, diaphoresis, chills, HEAD: Denies acute: headache, photophobia Eyes: Denies acute: Double vision, vision loss, eye pain, eye discharge. EARS: Denies acute: tinnitus, hearing loss, ear discharge, ear pain, THROAT: Denies acute: sore throat, swelling, difficulty swallowing , pain with swallowing, change in voice. NECK: Denies acute: neck pain, neck swelling, stiff neck. HEART: Denies acute : chest pain, palpitations, LUNGS: Denies acute: SOB, wheezing, cough, hemoptysis ABDOMEN: Denies acute: Vomiting, diarrhea, melena , hematemesis, hematochezia SKIN: Denies acute: rash, redness, lesions, itchiness. EXTREMITIES: Denies acute: calf pain, numbness, tingling, weakness, denies pain in extremity. Denies acute: Low back pain. Neuro: Denies acute: focal neurological deficit, motor or sensory focal neurological deficit, tremors, seizure like activity, confusion, dizziness, change in mental status, loss of bowel or bladder function, cauda equina like symptoms. : Denies acute: dysuria, hematuria, flank pain, increase in urinary frequency. PSYCH: Denies acute: hallucination, suicidal ideation, homicidal ideation. PHYSICAL EXAM: General: no acute distress, awake and alert. Head: normocephalic, atraumatic. Neck: supple, trachea is midline, no swelling. Throat: Normal phonation. Eyes:, no erythema, no purulent discharge, no proptosis, no icterus. Heart: regular rate, regular rhythm, no significant murmur appreciated. Lungs: no apparent respiratory distress, Able to speak in full sentences. No wheezing, no rhonchi, no crackles. No stridors Clear to auscultation bilaterally. Abdomen: Right lower quadrant tender to palpation, non distended, soft, no guarding, no rebound, + bowel sounds. Incisions look clean dry and intact. Steri-Strips is noted. Neuro: Awake, Alert, oriented to name, self, situation, follows commands GCS=15. Speech is normal. Skin: no petechia, no purpura, no cyanosis, non-pale, not jaundice. Lower extremities: --no - Pitting edema no deformity, no focal swelling, no calf TTP. Makes eye contact. moves all four extremities. Face: no apparent facial droop. Chief Complaint: Abdominal Pain Time Seen by MD: 15:39 Primary Care Provider: ADRIENNE Reviewed Notes: Nurses Notes, Director Telecommunications Notes, Allergies Allergies: Coded Allergies: NO KNOWN ALLERGIES (Unverified , 08/15/17) Home Meds Active Scripts Hydrocodone-Acetaminophen (Hydrocodone Bitartrate/AC 5-325 mg) 1 Tab Tab, 1 TAB PO Q6HPRN PRN, #10 TAB Prov:LEYLA REBOLLAR MD 12/11/24 Amoxicillin & Pot Clavulanate (Augmentin) 500 Mg Tab, 1 TAB PO BID, #10 TAB Prov:LEYLA REBOLLAR MD 12/11/24 Ipratropium [place] Hfa (Atrovent Hfa) 17 Mcg Aer, 17 MCG IN Q6HPRN PRN, #120 DOSE Prov:VERNA CRUZ MD 12/22/20 Furosemide (Lasix) 40 Mg Tab, 40 MG PO DAILY, #30 TAB Prov:VERNA CRUZ MD 12/22/20 Pantoprazole Sodium Sesquihydr (Pantoprazole Sodium) 40 Mg Tab, 40 MG PO DAILY, #30 TAB Prov:VERNA CRUZ MD 12/22/20 Metoprolol Tartrate (Lopressor) 25 Mg Tb, 12.5 MG PO BID, #30 TAB Prov:VERNA CRUZ MD 12/22/20 Insulin Glargine (Lantus) 100 Unit/Ml Inj, 15 UNITS SC HS, #1 VIAL Prov:VERNA CRUZ MD 12/22/20 Docusate Sodium (Docusate Sodium) 100 Mg Cap, 100 MG PO BID, #60 CAP Prov:VERNA CRUZ MD 12/22/20 Albuterol Sulfate (VENTOLIN MDI) 90 Mcg Ih, 180 MCG IN Q6HPRN PRN, #1 INHALER Prov:VERNA CRUZ MD 12/22/20 Aspirin (Aspir-Low) 81 Mg Tab, 81 MG PO DAILY, #14 TAB Prov:LEYLA REBOLLAR MD 12/07/20 Famotidine (PEPCID TABLET) 20 Mg Tb, 1 TAB PO BID, #30 TAB Prov:LEYLA REBOLLAR MD 12/07/20 Information Source: Patient, Emergency Med Personnel Mode of Arrival: EMS Past Medical History PAST MEDICAL HISTORY: Anxiety, DM, HTN Surgical History: Denies all surgeries Family History Family History: Reviewed,noncontributory to illness, Unobtainable Social History Smoker: Unknown Alcohol: Unknown Drugs: Unknown Lives In: Home Was a procedure done? Was a procedure done?: No GI differential Dx Differential Diagnosis: Other (DDX include but not limited to diverticulitis, colitis, gastroenteritis, acute abdomen, SBO, enteritis, constipation, volvulus, appendicitis, Gallbladder disease, choledocolithiasis, ascending cholangitis, pancreatitis, intraAbdominal mass/neoplasm, hepatitis, UTI, pylonephritis, kidney stone, aneurysm, dissection, Inflammatory bowel disease, gastroparesis, ischemic bowel.) X-Ray, Labs, Meds, VS Vital Signs Date Time Temp Pulse Resp B/P (MAP) Pulse Ox O2 Delivery O2 Flow Rate FiO2 12/24/24 22:44 98.5 81 14 110/72 (85) 99 98.5 12/24/24 15:45 97 12/24/24 15:41 98.4 107 18 130/86 (101) 98 Lab Test 12/24/24 18:26 12/24/24 16:25 Range/Units Lactic Acid Level 1.9 3.2 *H 0.4-2.0 mmol/L Troponin I High Sensitivity < 3 L < 3 L </=54 ng/L White Blood Count 12.3 H 4.4-10.8 10^3/uL Red Blood Count 4.69 4.5-5.90 10^6/uL Hemoglobin 14.2 13.5-17.5 g/dL Hematocrit 41.2 41.0-53.0 % Mean Corpuscular Volume 87.8 80.0-100.0 fL Mean Corpuscular Hemoglobin 30.2 28.0-32.0 pg Mean Corpuscular Hemoglobin Concent 34.4 32.0-36.0 g/dL Red Cell Distribution Width 14.1 11.8-14.3 % Platelet Count 251 140-450 10^3/uL Mean Platelet Volume 9.3 6.9-10.8 fL Neutrophils (%) (Auto) 72.0 37.0-80.0 % Lymphocytes (%) (Auto) 17.4 10.0-50.0 % Monocytes (%) (Auto) 7.9 0.0-12.0 % Eosinophils (%) (Auto) 1.6 0.0-7.0 % Basophils (%) (Auto) 1.1 0.0-2.0 % Neutrophils # (Auto) 8.9 H 1.6-8.6 10 ^3/uL Lymphocytes # (Auto) 2.1 0.4-5.4 10 ^3/uL Monocytes # (Auto) 1.0 0-1.3 10 ^3/uL Eosinophils # (Auto) 0.2 0-0.8 10 ^3/uL Basophils # (Auto) 0.1 0-0.2 10 ^3/uL Nucleated Red Blood Cells 0.1 % Sodium Level 134 L 136-145 mmol/L Potassium Level 3.2 L 3.5-5.1 mmol/L Chloride Level 98 98-107 mmol/L Carbon Dioxide Level 25 20-31 mmol/L Anion Gap 11 5-15 Blood Urea Nitrogen 11 9-23 mg/dL Creatinine 1.01 0.700-1.30 mg/dL Glomerular Filtration Rate Calc 89 >90 mL/min BUN/Creatinine Ratio 10.9 10.0-20.0 Serum Glucose 172 H 74-106 mg/dL Calcium Level 10.0 8.7-10.4 mg/dL Total Bilirubin 0.8 0.2-1.0 mg/dL Aspartate Amino Transferase (AST) 13 13-40 U/L Alanine Aminotransferase (ALT) 17 7-40 U/L Alkaline Phosphatase 98 46-116 U/L Total Protein 8.6 H 5.7-8.2 g/dL Albumin 4.9 H 3.2-4.8 g/dL Lipase 34 12-53 U/L [facility] [id number] [facility] [address] Ph: [phone] DIAGNOSTIC IMAGING Diagnostic Imaging Report : [id number] Signed PATIENT: ELLEN CASTAÑEDA ACCT: [id number] UNIT: [id number] : 1970 LOC: ER ROOM / BED: / AGE / SEX: 54 / M ADM STATUS: REG ER SERVICE [id number] ORDERING PHYSICIAN: LUIS CARLOS MARRUFO DO PROCEDURE(s): ABPL - CT AB PEL WO CON-NO ORAL OR IV REASON: POST OP APPY. RLQ PAIN ORDER NUMBER(s): [id number], ACCESSION NUMBER(s): [id number] Procedure: CT CT AB PEL WO CON-NO ORAL OR IV 12/24/2024 03:48 PM Indication: POST OP APPY. RLQ PAIN Comparison Study: CT scan dated 12/08/2024 Technique: Axial images were obtained and reformatted in coronal and sagittal planes. All CT scans at this medical facility are performed using dose modulation techniques as appropriate to a performed exam including the following: Automated exposure control was utilized; adjustment of the MA and/or KV according to patient size; and use of iterative reconstruction technique. CT Dose: CTDI volume is 25 mGy. Dose-length product is 1512.3 mGy*cm FINDINGS: Lower Chest: Unremarkable. Hepatobiliary: Hepatic steatosis. Several subcentimeter calcified gallstones are seen in the gallbladder fundus. Spleen: Mild splenomegaly, 14.3 cm in craniocaudal. Pancreas: Unremarkable. Adrenal Glands: Unremarkable. tract: The kidneys are normal in size bilaterally without hydronephrosis or nephrolithiasis. The urinary bladder is unremarkable. GI tract: The stomach is grossly normal in appearance. No evidence of small bowel obstruction. The large bowel is unremarkable. Status post appendix. A 3.2 x 2.7 cm blind ending tubular structure is seen arising from the medial wall of the cecum adjacent appendectomy clips. Mesenteric fat stranding noted in the right upper quadrant. Several subcentimeter mesenteric lymph nodes are seen adjacent to the cecum. Lymphatics: Mild mesenteric adenitis. Vasculature: The abdominal aorta is normal in in caliber. Pelvic Organs: Unremarkable Bones/soft tissues: Moderate multilevel degenerative disc disease prominent disc bulge at L2-L3 level. Other: None. IMPRESSION: 1. A 2.7 cm blind ending pouchlike structure arising from medial wall of the cecum with adjacent appendectomy clips with worsening pericecal inflammation,that may represent residual proximal appendix or inflamedcecal diverticulum or abscess. No definite diverticulum was noted in the prior CT scan. Stable moderate mesenteric adenitis is noted. ATED BY: DORY SALAZAR MD DICTATED DATE/TIME: 12/24/241642 SIGNED BY: DORY SALAZAR MD SIGNED DATE/TIME: 12/24/241642 CC: Time of 1ST Reevaluation: 22:26 (The case was discussed with the admitting team (HPI, physical exam, labs and diagnostic tests that were available at the time of disposition, ED course, treatment plan) on the phone. They agreed to admit the patient to their service and assume care of this patient from this point forward. KEILY Newsome. Still waiting to hear from general surgery.) Reevaluation 1ST: Improved Time of 2ND Reevaluation: 23:57 (dr. wise general surgery on-call were consulted at this time. They agree with our management and will follow in consult.) Patient Education/Counseling: Diagnosis, Treatment Family Education/Counseling: No Family Present Comments Patient had abnormal CT scan findings with the associated leukocytosis and elevated lactic acid of 3.2. Patient was started on fluids and Zosyn. General surgery was consulted Patient admitted to the medicine team for further evaluation and treatment. Patient presented with the above HPI.---abdominal pain postop---workup was initiated. patient was found with the above mentioned diagnosis. the following medications were ordered: please refer to order lists of meds and tests obtained by myself Dr. Marrufo. Patient ED course and VS have been stabilized. Patient has been reassessed in the ED and remained in a stable condition. Pertinent incidental findings were discussed with the patient and/or family. Patient/family voices understanding and is agreeable with plan. Patient has been observed in the ED adequate length of time to insure improvement/stability. General surgery was consulted Escalation of care considered: Consideration of escalation to observation or admission Patient was ADMITTED to the medicine team for further evaluation and treatment of their presentation. All the reports of any imaging studies that were ordered by myself were reviewed by myself. Departure 1 Departure Time of Disposition: 20:55 Impression: Primary Impression: Postoperative pain Additional Impressions: Right lower quadrant abdominal pain Abnormal finding on CT scan Disposition: ADMITTED INPATIENT Admit to: Tele Condition: Guarded Discharged With: Self Critical Care Note Critical Care Time?: Yes (35 min-critical care time only) I personally scribed for LUIS CARLOS MARRUFO DO ([email or web address]) on 12/24/24 at 21:43. Electronically submitted by Saulo Mackenzie ([facility]). LUIS CARLOS MARRUFO DO Dec 24, 2024 16:34
[2024-12-24 16:40] LABS: Basophils # (auto) 0.1 10 ^3/uL (0-0.2); Basophils % (auto) 1.1 % (0.0-2.0); Eosinophils # (auto) 0.2 10 ^3/uL (0-0.8); Eosinophils % (auto) 1.6 % (0.0-7.0); Hematocrit 41.2 % (41.0-53.0); Hemoglobin 14.2 g/dL (13.5-17.5); Lymphocytes # (auto) 2.1 10 ^3/uL (0.4-5.4); Lymphocytes % (auto) 17.4 % (10.0-50.0); Mean Corpuscular Hemoglobin 30.2 pg (28.0-32.0); Mean Corpuscular Hgb Conc. 34.4 g/dL (32.0-36.0); Mean Corpuscular Volume 87.8 fL (80.0-100.0); Monocytes % (auto) 7.9 % (0.0-12.0); Neutrophils # (auto) 8.9 10 ^3/uL (1.6-8.6); Nucleated Red Blood Cells % 0.1 %; Platelet Count (auto) 251 10^3/uL (140-450); Red Blood Cells 4.69 10^6/uL (4.5-5.90); Red Cell Distribution Width 14.1 % (11.8-14.3); White Blood Cell 12.3 10^3/uL (4.4-10.8)
--- NOTE | 2024-12-24 16:46 | DVH ---
Procedure: CT CT AB PEL WO CON-NO ORAL OR IV 12/24/2024 03:48 PM Indication: POST OP APPY. RLQ PAIN Comparison Study: CT scan dated 12/08/2024 Technique: Axial images were obtained and reformatted in coronal and sagittal planes. All CT scans at this medical facility are performed using dose modulation techniques as appropriate t o a performed exam including the following: Automated exposure control was utilized; adjustment of th e MA and/or KV according to patient size; and use of iterative reconstruction technique. CT Dose: CTDI volume is 25 mGy. Dose-length product is 1512.3 mGy*cm FINDINGS: Lower Chest: Unremarkable. Hepatobiliary: Hepatic steatosis. Several subcentimeter calcified gallstones are seen in the gallblad shiraz fundus. Spleen: Mild splenomegaly, 14.3 cm in craniocaudal. Pancreas: Unremarkable. Adrenal Glands: Unremarkable. tract: The kidneys are normal in size bilaterally without hydronephrosis or nephrolithiasis. The urinary bladder is unremarkable. GI tract: The stomach is grossly normal in appearance. No evidence of small bowel obstruction. The la rge bowel is unremarkable. Status post appendix. A 3.2 x 2.7 cm blind ending tubular structure is se en arising from the medial wall of the cecum adjacent appendectomy clips. Mesenteric fat stranding n oted in the right upper quadrant. Several subcentimeter mesenteric lymph nodes are seen adjacent to the cecum. Lymphatics: Mild mesenteric adenitis. Vasculature: The abdominal aorta is normal in in caliber. Pelvic Organs: Unremarkable Bones/soft tissues: Moderate multilevel degenerative disc disease prominent disc bulge at L2-L3 level . Other: None. IMPRESSION: 1. A 2.7 cm blind ending pouchlike structure arising from medial wall of the cecum with adjacent appe ndectomy clips with worsening pericecal inflammation,that may represent residual proximal appendix or inflamedcecal diverticulum or abscess. No definite diverticulum was noted in the prior CT scan. St able moderate mesenteric adenitis is noted.
[2024-12-24 16:58] LABS: Alanine Aminotransferase 17 U/L (7-40); Alkaline Phosphatase 98 U/L (46-116); Anion Gap 11 (5-15); Aspartate Aminotransferase 13 U/L (13-40); BUN/Creatinine Ratio 10.9 (10.0-20.0); Bilirubin, Total 0.8 mg/dL (0.2-1.0); Blood Urea Nitrogen 11 mg/dL (9-23); Carbon Dioxide 25 mmol/L (20-31)
[2024-12-24 17:03] LABS: Albumin 4.9 g/dL (3.2-4.8); Chloride 98 mmol/L (98-107); Glucose 172 mg/dL (74-106); Potassium 3.2 mmol/L (3.5-5.1); Sodium 134 mmol/L (136-145); Total Protein 8.6 g/dL (5.7-8.2)
[2024-12-24 17:05] LABS: Lactic Acid w/Reflex 3.2 mmol/L (0.4-2.0)
[2024-12-24 17:18] LABS: Lipase 34 U/L (12-53)
[2024-12-24] MEDS: SODIUM CHLORIDE 0.9% 1,000 ML IV ONE (17:54)
[2024-12-24] MEDS: PIPERACILLIN-TAZOB 3.375GM 100 ML IV ONE (17:54)
[2024-12-24] MEDS: ONDANSETRON HCL 4 MG/2 ML VIAL IV ONE (17:54)
--- NOTE | 2024-12-24 17:57 | ECG ---
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
[2024-12-25] MEDS ORDERED: ONDANSETRON HCL 4 MG/2 ML VIAL IV PRN (01:30)
--- NOTE | 2024-12-25 01:38 | DVHHP2 ---
Admitting Diagnosis: abdominal pain, abnormal CT History of Present Illness History Source: Patient Exam Limitations: No limitations HPI This is a 54-year-old male presents with a chief complaint of abdominal pain, nausea postoperative. Patient had an appendectomy done at our facility on the of this month. Patient started developing nausea but no vomiting and constant right lower quadrant pain in the last two days. Patient CT abdomen / pelvis resulted : 1. A 2.7 cm blind ending pouchlike structure arising from m edial wall of the cecum with adjacent appendectomy clips with worsening pericecal inflammation,that may represent residual proximal appendix or inflamedcecal diverticulum or abscess. No definite diverticulum was noted in the prior CT scan. Stable moderate mesenteric adenitis is noted. General surgeon administration physician was consulted by ED Provider , general surgery to consult and see patien t in am. Patient reports decreased in right lower quadrant abdominal pain. Denies constipation , diarrhea, nausea, vomiting, dysuria, hematuria. Patient admitted for further evaluation and treatment. Home Meds Active Scripts Hydrocodone-Acetaminophen (Hydrocodone Bitartrate/AC 5-325 mg) 1 Tab Tab, 1 TAB PO Q6HPRN PRN, #10 TAB Prov:LEYLA REBOLLAR MD 12/11/24 Amoxicillin & Pot Clavulanate (Augmentin) 500 Mg Tab, 1 TAB PO BID, #10 TAB Prov:LEYLA REBOLLAR MD 12/11/24 Ipratropium [place] Hfa (Atrovent Hfa) 17 Mcg Aer, 17 MCG IN Q6HPRN PRN, #120 DOSE Prov:VERNA CRUZ MD 12/22/20 Furosemide (Lasix) 40 Mg Tab, 40 MG PO DAILY, #30 TAB Prov:VERNA CRUZ MD 12/22/20 Pantoprazole Sodium Sesquihydr (Pantoprazole Sodium) 40 Mg Tab, 40 MG PO DAILY, #30 TAB Prov:VERNA CRUZ MD 12/22/20 Metoprolol Tartrate (Lopressor) 25 Mg Tb, 12.5 MG PO BID, #30 TAB Prov:VERNA CRUZ MD 12/22/20 Insulin Glargine (Lantus) 100 Unit/Ml Inj, 15 UNITS SC HS, #1 VIAL Prov:VERNA CRUZ MD 12/22/20 Docusate Sodium (Docusate Sodium) 100 Mg Cap, 100 MG PO BID, #60 CAP Prov:VERNA CRUZ MD 12/22/20 Albuterol Sulfate (VENTOLIN MDI) 90 Mcg Ih, 180 MCG IN Q6HPRN PRN, #1 INHALER Prov:VERNA CRUZ MD 12/22/20 Aspirin (Aspir-Low) 81 Mg Tab, 81 MG PO DAILY, #14 TAB Prov:LEYLA REBOLLAR MD 12/07/20 Famotidine (PEPCID TABLET) 20 Mg Tb, 1 TAB PO BID, #30 TAB Prov:LEYLA REBOLLAR MD 12/07/20 Past Medical History Cardiac: No pertinent Hx Pulmonary: No pertinent Hx Central Nervous System: No pertinent Hx GI: No pertinent Hx Hemotology/Oncology: No pertinent Hx Hepatobiliary: No pertinent Hx Psychiatric: No pertinent Hx Musculoskeletal: No pertinent Hx Rheumotologic: No pertinent Hx Infectious Disease: No peritnent Hx ENT: No pertinent Hx Renal/: No pertinent Hx Endocrine: No pertinent Hx Dermatology: No pertinent Hx Past Surgical History: Appendectomy Patient Family History: Cardiovascular disease G8 MOTHER Diabetes mellitus G8 MOTHER G8 FATHER Smoker: No Hx (Negative) Alocohol: None Drugs: None Lives with: With family Domestic Violence: Neg Review of Systems Constitutional: No symptom reported Ears, Nose, & Throat: No symptom reported Eyes: No symptom reported Pulmonary/Respiratory: No symptom reported Cardiovascular: No symptom reported Gastrointestinal: Abdominal Pain Genitourinary: No symptom reported Musculoskeletal: No symptom reported Skin: No symptom reported Psychiatric: No symptom reported Endocrine: No symptom reported Hemotologic/Lymphatic: No symptom reported H&P Exam Vital Signs Vital Signs Date Time Temp Pulse Resp B/P (MAP) Pulse Ox O2 Delivery O2 Flow Rate FiO2 12/24/24 22:44 98.5 81 14 110/72 (85) 99 98.5 General Appeara: Well developed, Well nourished, Normal Appearance Head Exam: Normal inspection Neck Exam: Normal inspection, Non-tender, Normal alignment Eye Exam: bilateral eye Normal inspection, bilateral eye PERRL, bilateral eye EOMI Ear Exam: bilateral ear Auricle normal Nasal Exam: Normal inspection Mouth: Normal Inspection Pulmonary/Respiratory: Normal inspection, Normal breath sounds, Chest non- tender, Lungs clear Cardiovascular/Chest: Normal inspection, Regular rate, Normal Rhythm Peripheral Pulses: 2+ dorsalis pedis (R), 2+ dorsalis pedis (L), 2+ Radial (R), 2+ Radial (L) Abdominal Exam: Normal bowel sounds, Soft, No tenderness Abdominal Pain Onset Location: RLQ Rectal Exam: Deferred Back Exam: Normal inspection Male Genital Exam: Not done [employer] Exam: Normal hearing, Normal speech, PERRL Neuro/Mental St: Alert, Oriented Appearance: Appropriate appearance, Appropriate insight Eye contact/ Speech: Cooperative, Good eye contact, Normal speech Thoughts/Psych: Normal thought pattern Skin Exam: Normal inspection, Normal color, Warm/dry Labs/Xrays Labs Test 12/24/24 18:26 12/24/24 16:25 Range/Units Lactic Acid Level 1.9 0.4-2.0 mmol/L Troponin I High Sensitivity < 3 L </=54 ng/L White Blood Count 12.3 H 4.4-10.8 10^3/uL Red Blood Count 4.69 4.5-5.90 10^6/uL Hemoglobin 14.2 13.5-17.5 g/dL Hematocrit 41.2 41.0-53.0 % Mean Corpuscular Volume 87.8 80.0-100.0 fL Mean Corpuscular Hemoglobin 30.2 28.0-32.0 pg Mean Corpuscular Hemoglobin Concent 34.4 32.0-36.0 g/dL Red Cell Distribution Width 14.1 11.8-14.3 % Platelet Count 251 140-450 10^3/uL Mean Platelet Volume 9.3 6.9-10.8 fL Neutrophils (%) (Auto) 72.0 37.0-80.0 % Lymphocytes (%) (Auto) 17.4 10.0-50.0 % Monocytes (%) (Auto) 7.9 0.0-12.0 % Eosinophils (%) (Auto) 1.6 0.0-7.0 % Basophils (%) (Auto) 1.1 0.0-2.0 % Neutrophils # (Auto) 8.9 H 1.6-8.6 10 ^3/uL Lymphocytes # (Auto) 2.1 0.4-5.4 10 ^3/uL Monocytes # (Auto) 1.0 0-1.3 10 ^3/uL Eosinophils # (Auto) 0.2 0-0.8 10 ^3/uL Basophils # (Auto) 0.1 0-0.2 10 ^3/uL Nucleated Red Blood Cells 0.1 % Sodium Level 134 L 136-145 mmol/L Potassium Level 3.2 L 3.5-5.1 mmol/L Chloride Level 98 98-107 mmol/L Carbon Dioxide Level 25 20-31 mmol/L Anion Gap 11 5-15 Blood Urea Nitrogen 11 9-23 mg/dL Creatinine 1.01 0.700-1.30 mg/dL Glomerular Filtration Rate Calc 89 >90 mL/min BUN/Creatinine Ratio 10.9 10.0-20.0 Serum Glucose 172 H 74-106 mg/dL Calcium Level 10.0 8.7-10.4 mg/dL Total Bilirubin 0.8 0.2-1.0 mg/dL Aspartate Amino Transferase (AST) 13 13-40 U/L Alanine Aminotransferase (ALT) 17 7-40 U/L Alkaline Phosphatase 98 46-116 U/L Total Protein 8.6 H 5.7-8.2 g/dL Albumin 4.9 H 3.2-4.8 g/dL Lipase 34 12-53 U/L Assessment/Plan Problem List: (1) Abnormal finding on CT scan (2) Postoperative pain (3) Right lower quadrant abdominal pain Plan This is a 54 yo male with a history of recent appendicitis seen at this facility status post appendectomy on 12/11/24. Patient presents to the hospital with right lower quadrant pain and nausea without vomiting. Patient found to have 1. Abnormal CT abdomen/pelvis findings 2. Abdominal pain 3. Leukocytosis 4. Mild Hypokalemia PLAN Admit to Telemetry unit General Surgeon consultation IV antibiotic Zosyn IV fluids NS GI ppx Pepcid IV DVT ppx Lovenox SC Monitor lactic, CBC, BMP Monitor electrolytes replenish as needed NPO until further recommendation from general surgery Discussed all above with patient who verbalizes agreement and understanding of care plan. All questions were answered. Discussed assessment and care plan with supervising MD. Plan discussed with: Patient, Other Code Visit Code Visit Total Time (mins): 45 Additional Comments Additional Comments Additional Comments 54-year-old male with a known history of hypertension, insulin-dependent diabetes mellitus, recent laparoscopic appendectomy about two weeks ago presented to the hospital with the abdominal pain and nausea found to have 1. Abdominal CT of the finding with the inflammatory changes at the operative site with mesenteric adenitis. 2. Right lower quadrant abdominal pain associated with the nausea ,currently resolved 3. Mild leukocytosis 4. Insulin-dependent diabetes mellitus type 2 5. Hypertension -clear liquid diet as tolerated, follow up General surgery recommendations. NITHIN DOWELL Dec 25, 2024 01:38 BREANNA BLANCO MD Dec 25, 2024 14:33
[2024-12-25] MEDS: MORPHINE SULFATE INJ 2 MG/ml SYRG IV PRN (03:06)
[2024-12-25] MEDS: POTASSIUM CHL 20MEQ/100ML 100 ML IV ONE (03:06)
[2024-12-25] MEDS: SODIUM CHLORIDE 0.9% 1,000 ML IV SCH (03:06)
[2024-12-25 03:10] VITALS: PULSE 65; RESP 18; O2SAT 99
--- NOTE | 2024-12-25 03:31 | DVH ---
Examination: CXRP Clinical Indication: admission Comparison: None. Technique: Frontal radiograph of the chest was obtained. Findings: Lungs are clear and well expanded with no pulmonary infiltrate or pleural effusion. There is no pneumothorax. Mild bilateral hilar congestion and subtle ground-glass opacification in bilateral parahilar region p robable pulmonary edema/infiltrates. Right diaphragmatic eventration is identified. No acute osseous abnormality is seen. Impression: Mild bilateral hilar congestion and subtle ground-glass opacification in bilateral parah ilar region probable pulmonary edema/infiltrates. Right diaphragmatic eventration is identified. Electronically Signed 12/25/2024 03:31 Jose Eli
[2024-12-25] MEDS: PIPERACILLIN-TAZOB 3.375GM 100 ML IV SCH (06:00)
[2024-12-25 06:13] LABS: Basophils # (auto) 0.1 10 ^3/uL (0-0.2); Basophils % (auto) 0.6 % (0.0-2.0); Eosinophils # (auto) 0.2 10 ^3/uL (0-0.8); Eosinophils % (auto) 1.7 % (0.0-7.0); Hematocrit 37.3 % (41.0-53.0); Hemoglobin 12.5 g/dL (13.5-17.5); Lymphocytes # (auto) 2.4 10 ^3/uL (0.4-5.4); Lymphocytes % (auto) 22.5 % (10.0-50.0); Mean Corpuscular Hemoglobin 29.4 pg (28.0-32.0); Mean Corpuscular Hgb Conc. 33.4 g/dL (32.0-36.0); Monocytes # (auto) 1.2 10 ^3/uL (0-1.3); Monocytes % (auto) 11.1 % (0.0-12.0); Neutrophils # (auto) 6.9 10 ^3/uL (1.6-8.6); Neutrophils % (auto) 64.1 % (37.0-80.0); Nucleated Red Blood Cells % 0.2 %; Platelet Count (auto) 202 10^3/uL (140-450); Red Blood Cells 4.25 10^6/uL (4.5-5.90); Red Cell Distribution Width 14.4 % (11.8-14.3); White Blood Cell 10.7 10^3/uL (4.4-10.8)
[2024-12-25 06:25] LABS: Chloride 105 mmol/L (98-107); Potassium 3.5 mmol/L (3.5-5.1); Sodium 138 mmol/L (136-145)
[2024-12-25 06:26] LABS: Anion Gap 8 (5-15); Calcium 9.3 mg/dL (8.7-10.4); Carbon Dioxide 25 mmol/L (20-31)
[2024-12-25 06:31] LABS: Glucose 141 mg/dL (74-106)
[2024-12-25 06:36] LABS: BUN/Creatinine Ratio 20.7 (10.0-20.0); Blood Urea Nitrogen 17 mg/dL (9-23)
[2024-12-25 06:38] LABS: INR 1.09 (0.9-1.15); Prothrombin Time 11.5 sec (9.3-11.8)
[2024-12-25 07:45] VITALS: PULSE 82; RESP 18; O2SAT 100
[2024-12-25 09:40] LABS: Urine Bacteria None Seen /hpf (None Seen)
[2024-12-25 09:56] LABS: Urine Blood TRACE /uL (Negative); Urine Budding Yeast OCCASIONAL /hpf (None Seen); Urine Clarity Clear (Clear); Urine Color Yellow (Yellow); Urine Hyaline Cast FEW /lpf (0 - 2); Urine Mucus FEW (None Seen); Urine Protein, UAD TRACE (Negative); Urine Specific Gravity 1.037 (1.001-1.035); Urine Squamous Epithelial Cell FEW /hpf (<5); Urine Urobilinogen Normal (Negative); Urine WBC 10 /HPF (0-3); Urine pH 5.5 (5.0-9.0)
[2024-12-25] MEDS: FAMOTIDINE (10MG/ML) 2ML VL IV SCH (10:16)
[2024-12-25] MEDS: ENOXAPARIN SOD 40 MG/0.4 ML SYRINGE SC SCH (10:16)
--- NOTE | 2024-12-25 12:26 | DVHINCON2 ---
Date of service: Dec 25, 2024 Family History: Cardiovascular disease G8 MOTHER Diabetes mellitus G8 MOTHER G8 FATHER Allergies: Coded Allergies: NO KNOWN ALLERGIES (Unverified , 08/15/17) Home Meds Active Scripts Hydrocodone-Acetaminophen (Hydrocodone Bitartrate/AC 5-325 mg) 1 Tab Tab, 1 TAB PO Q6HPRN PRN, #10 TAB Prov:LEYLA REBOLLAR MD 12/11/24 Amoxicillin & Pot Clavulanate (Augmentin) 500 Mg Tab, 1 TAB PO BID, #10 TAB Prov:LEYLA REBOLLAR MD 12/11/24 Ipratropium [place] Hfa (Atrovent Hfa) 17 Mcg Aer, 17 MCG IN Q6HPRN PRN, #120 DOSE Prov:VERNA CRUZ MD 12/22/20 Furosemide (Lasix) 40 Mg Tab, 40 MG PO DAILY, #30 TAB Prov:VERNA CRUZ MD 12/22/20 Pantoprazole Sodium Sesquihydr (Pantoprazole Sodium) 40 Mg Tab, 40 MG PO DAILY, #30 TAB Prov:VERNA CRUZ MD 12/22/20 Metoprolol Tartrate (Lopressor) 25 Mg Tb, 12.5 MG PO BID, #30 TAB Prov:VERNA CRUZ MD 12/22/20 Insulin Glargine (Lantus) 100 Unit/Ml Inj, 15 UNITS SC HS, #1 VIAL Prov:VERNA CRUZ MD 12/22/20 Docusate Sodium (Docusate Sodium) 100 Mg Cap, 100 MG PO BID, #60 CAP Prov:VERNA CRUZ MD 12/22/20 Albuterol Sulfate (VENTOLIN MDI) 90 Mcg Ih, 180 MCG IN Q6HPRN PRN, #1 INHALER Prov:VERNA CRUZ MD 12/22/20 Aspirin (Aspir-Low) 81 Mg Tab, 81 MG PO DAILY, #14 TAB Prov:LEYLA REBOLLAR MD 12/07/20 Famotidine (PEPCID TABLET) 20 Mg Tb, 1 TAB PO BID, #30 TAB Prov:LEYLA REBOLLAR MD 12/07/20 Current Medications Current Medications Medications (Trade) Dose Ordered Sig/Lizzette Route PRN Reason Start Time Stop Time Status Last Admin Sodium Chloride 1,000 ml @ 100 mls/hr Q10H IV 12/25/24 01:30 12/25/24 08:52 Piperacillin Sod/ Tazobactam Sod 100 ml @ 100 mls/hr Q8HR IV 12/25/24 06:00 12/25/24 06:00 Ondansetron HCl (Zofran) 4 mg Q6HPRN PRN IV NAUSEA / VOMITING 12/25/24 01:30 Morphine Sulfate 2 mg Q6HPRN PRN IV PAIN SCALE 1 THRU 6 12/25/24 01:30 12/25/24 03:06 Famotidine (Pepcid Injection) 20 mg DAILY IV 12/25/24 10:00 12/25/24 10:16 Enoxaparin Sodium (Lovenox) 40 mg DAILY SC 12/25/24 10:00 12/25/24 10:16 Vital Signs Vital Signs Date Time Temp Pulse Resp B/P (MAP) Pulse Ox O2 Delivery O2 Flow Rate FiO2 12/25/24 12:00 91 12/25/24 07:45 18 100 Nasal Cannula* 2 28 12/25/24 07:45 98.5 112/63 (79) 98.5 Labs/Diagnostic Data Labs Test 12/25/24 08:40 12/25/24 05:54 12/25/24 01:50 12/24/24 18:26 Range/Units Urine Color Yellow Yellow Urine Clarity Clear Clear Urine pH 5.5 5.0-9.0 Urine Specific [place] 1.037 H 1.001-1.035 Urine Protein Trace H Negative Urine Ketones 1+ H Negative Urine Blood Trace H Negative /uL Urine Nitrite 2+ H Negative Urine Bilirubin Negative Negative Urine Urobilinogen Normal Negative mg/dL Urine Leukocyte Esterase Trace Negative /uL Urine RBC 2 0 - 3 /hpf Urine Microscopic WBC 10 H 0-3 /HPF Urine Squamous Epithelial Cells Few <5 /hpf Urine Bacteria None seen None Seen /hpf Urine Hyaline Casts Few 0 - 2 /lpf Urine Mucus Few None Seen Urine Yeast (Budding) Occasional None Seen /hpf Urine Glucose 4+ H Normal mg/dL White Blood Count 10.7 4.4-10.8 10^3/uL Red Blood Count 4.25 L 4.5-5.90 10^6/uL Hemoglobin 12.5 L 13.5-17.5 g/dL Hematocrit 37.3 L 41.0-53.0 % Mean Corpuscular Volume 88.0 80.0-100.0 fL Mean Corpuscular Hemoglobin 29.4 28.0-32.0 pg Mean Corpuscular Hemoglobin Concent 33.4 32.0-36.0 g/dL Red Cell Distribution Width 14.4 H 11.8-14.3 % Platelet Count 202 140-450 10^3/uL Mean Platelet Volume 9.3 6.9-10.8 fL Neutrophils (%) (Auto) 64.1 37.0-80.0 % Lymphocytes (%) (Auto) 22.5 10.0-50.0 % Monocytes (%) (Auto) 11.1 0.0-12.0 % Eosinophils (%) (Auto) 1.7 0.0-7.0 % Basophils (%) (Auto) 0.6 0.0-2.0 % Neutrophils # (Auto) 6.9 1.6-8.6 10 ^3/uL Lymphocytes # (Auto) 2.4 0.4-5.4 10 ^3/uL Monocytes # (Auto) 1.2 0-1.3 10 ^3/uL Eosinophils # (Auto) 0.2 0-0.8 10 ^3/uL Basophils # (Auto) 0.1 0-0.2 10 ^3/uL Nucleated Red Blood Cells 0.2 % Prothrombin Time 11.5 9.3-11.8 sec Prothrombin Time INR 1.09 0.9-1.15 Sodium Level 138 136-145 mmol/L Potassium Level 3.5 3.5-5.1 mmol/L Chloride Level 105 98-107 mmol/L Carbon Dioxide Level 25 20-31 mmol/L Anion Gap 8 5-15 Blood Urea Nitrogen 17 9-23 mg/dL Creatinine 0.82 0.700-1.30 mg/dL Glomerular Filtration Rate Calc 105 >90 mL/min BUN/Creatinine Ratio 20.7 H 10.0-20.0 Serum Glucose 141 H 74-106 mg/dL Lactic Acid Level 0.5 0.4-2.0 mmol/L Calcium Level 9.3 8.7-10.4 mg/dL Magnesium Level 2.2 1.6-2.6 mg/dL Troponin I High Sensitivity < 3 L </=54 ng/L Test 12/24/24 16:25 Range/Units Total Bilirubin 0.8 0.2-1.0 mg/dL Aspartate Amino Transferase (AST) 13 13-40 U/L Alanine Aminotransferase (ALT) 17 7-40 U/L Alkaline Phosphatase 98 46-116 U/L Total Protein 8.6 H 5.7-8.2 g/dL Albumin 4.9 H 3.2-4.8 g/dL Lipase 34 12-53 U/L Assessment pqatient is about 2 weeks s/p laparoscopic appendectomy, came to ER complaining of severe pain in his abdomen which has now resolved, abdominal examination is normal, no tenderness, no distension, no guarding, CT scan shows inflammatory changes at the site of appendectomy, WBC is normal., I do not believe he needs an operation, will allow clear liquids po, will follow with you Plan discussed with: Patient NIRMAL BAUMAN MD Dec 25, 2024 12:26
[2024-12-25] MEDS ORDERED: DEXTROSE (50%) 50ML SYRG IV PRN (15:15)
[2024-12-25] MEDS: ACCU-CHEK COMFORT CURVE STRIP VI SCH (17:00)
[2024-12-25 17:19] VITALS: BP 135/75; PULSE 95; RESP 18; TEMP 99.6; O2SAT 100
[2024-12-25] MEDS: InsuLIN REG 1unit/0.01ml Soln (100units/ml) SC SCH ×2 (17:59→22:33)
[2024-12-25 20:00] VITALS: PULSE 95
[2024-12-25 21:00] VITALS: BP 129/75; PULSE 90; RESP 20; TEMP 98.6; O2SAT 99
[2024-12-26] VITALS (9 sets, daily range): BP systolic 100–124; BP diastolic 55–72; PULSE 53–82; RESP 18–20; TEMP 97.5–98.7; O2SAT 93–100
[2024-12-26 06:13] LABS: Anion Gap 10 (5-15); Carbon Dioxide 23 mmol/L (20-31); Chloride 105 mmol/L (98-107); Sodium 138 mmol/L (136-145)
[2024-12-26 06:14] LABS: Calcium 9.2 mg/dL (8.7-10.4)
[2024-12-26 06:17] LABS: Potassium 3.4 mmol/L (3.5-5.1)
[2024-12-26 06:19] LABS: BUN/Creatinine Ratio 8.5 (10.0-20.0)
[2024-12-26 06:22] LABS: Blood Urea Nitrogen 6 mg/dL (9-23); Glucose 121 mg/dL (74-106)
--- NOTE | 2024-12-26 12:46 | DVHPN2 ---
Progress Note Date Seen: Dec 26, 2024 Medical Necessity Reason Pt with a Central, PICC or Fol: No Objective vital signs Vital Sign Date Time Temp Pulse Resp B/P (MAP) Pulse Ox O2 Delivery O2 Flow Rate FiO2 12/26/24 12:22 98.7 57 18 117/56 (76) 93 98.7 12/26/24 08:00 Nasal Cannula* 2 28 Total Intake and Output 12/25/24 12/25/24 12/26/24 15:00 23:00 07:00 Intake Total 763.3333 ml 200 ml 320 ml Output Total 650 ml 850 ml 620 ml Balance 113.3333 ml -650 ml -300 ml medications Current Medications Medications Dose Ordered Sig/Lizzette Route Start Time Stop Time Status Last Admin Dose Admin Sodium Chloride 1,000 ml @ 100 mls/hr Q10H IV 12/25/24 01:30 12/25/24 21:30 100 MLS/HR Piperacillin Sod/ Tazobactam Sod 100 ml @ 100 mls/hr Q8HR IV 12/25/24 06:00 12/26/24 09:29 100 MLS/HR Ondansetron HCl 4 mg Q6HPRN PRN IV 12/25/24 01:30 Morphine Sulfate 2 mg Q6HPRN PRN IV 12/25/24 01:30 12/25/24 22:04 2 MG Famotidine 20 mg DAILY IV 12/25/24 10:00 12/26/24 09:29 20 MG Enoxaparin Sodium 40 mg DAILY SC 12/25/24 10:00 12/26/24 09:29 40 MG Diagnostic Test (Pha) 1 strip ACHS 12/25/24 17:00 12/26/24 11:30 1 STRIP Insulin Human Regular HS SC 12/25/24 22:00 12/25/24 22:33 2 UNITS Insulin Human Regular AC SC 12/25/24 17:00 12/26/24 12:18 2 UNITS Dextrose 50 ml UD PRN IV 12/25/24 15:15 laboratory and microbiology Laboratory Tests 12/26/24 05:31 Test 12/26/24 05:31 Range/Units Serum Glucose 121 H 74-106 mg/dL Problem List/Assessment/Plan Problem List/Assessment/Plan 12/26/24 PAIN RESOLVED,IS HUNGRY, PASSING FLATUSAND HAD BOWEL MOVEMENT ABDOMEN NON TENDER, WILL ADVANCE DIET, COULD BE DISCHARGED TOMORROW Plan discussed with: Patient NIRMAL BAUMAN MD Dec 26, 2024 12:46
[2024-12-26 13:49] LABS: Basophils # (auto) 0 10 ^3/uL (0-0.2); Basophils % (auto) 0.4 % (0.0-2.0); Eosinophils # (auto) 0.2 10 ^3/uL (0-0.8); Eosinophils % (auto) 2.8 % (0.0-7.0); Hematocrit 36.3 % (41.0-53.0); Lymphocytes # (auto) 2.4 10 ^3/uL (0.4-5.4); Lymphocytes % (auto) 30.6 % (10.0-50.0); Mean Corpuscular Hemoglobin 29.4 pg (28.0-32.0); Mean Corpuscular Hgb Conc. 33.1 g/dL (32.0-36.0); Mean Corpuscular Volume 88.9 fL (80.0-100.0); Monocytes # (auto) 0.7 10 ^3/uL (0-1.3); Monocytes % (auto) 8.9 % (0.0-12.0); Neutrophils # (auto) 4.5 10 ^3/uL (1.6-8.6); Neutrophils % (auto) 57.3 % (37.0-80.0); Platelet Count (auto) 198 10^3/uL (140-450); Red Blood Cells 4.08 10^6/uL (4.5-5.90); Red Cell Distribution Width 13.8 % (11.8-14.3); White Blood Cell 7.9 10^3/uL (4.4-10.8)
--- NOTE | 2024-12-26 14:11 | DVHPN2 ---
Subjective Overnight events noted. Patient currently tolerating full liquid diet. Changes from previous H/P or p: No Changes Objective Vitals Vital Signs Date Time Temp Pulse Resp B/P (MAP) Pulse Ox O2 Delivery O2 Flow Rate FiO2 12/26/24 12:22 98.7 57 18 117/56 (76) 93 98.7 12/26/24 08:00 Nasal Cannula* 2 28 Intake/Output Intake and Output 12/26/24 07:00 Intake Total 1283.3333 ml Output Total 2120 ml Balance -836.6667 ml Intake Oral 220 ml IV Total 1063.3333 ml Output Urine Total 2120 ml Exam HEENT pupils are reactive Neck is supple CV is S1-S2 regular rate and rhythm Respiratory are clear GI posterior bowel sound, soft nondistended nontender no guarding no rigidity. Extremity no edema [employer] no motor deficit Medications Current Medications Medications Dose Ordered Sig/Lizzette Route Start Time Stop Time Status Last Admin Dose Admin Sodium Chloride 1,000 ml @ 100 mls/hr Q10H IV 12/25/24 01:30 12/25/24 21:30 100 MLS/HR Piperacillin Sod/ Tazobactam Sod 100 ml @ 100 mls/hr Q8HR IV 12/25/24 06:00 12/26/24 09:29 100 MLS/HR Ondansetron HCl 4 mg Q6HPRN PRN IV 12/25/24 01:30 Morphine Sulfate 2 mg Q6HPRN PRN IV 12/25/24 01:30 12/25/24 22:04 2 MG Famotidine 20 mg DAILY IV 12/25/24 10:00 12/26/24 09:29 20 MG Enoxaparin Sodium 40 mg DAILY SC 12/25/24 10:00 12/26/24 09:29 40 MG Diagnostic Test (Pha) 1 strip ACHS 12/25/24 17:00 12/26/24 11:30 1 STRIP Insulin Human Regular HS SC 12/25/24 22:00 12/25/24 22:33 2 UNITS Insulin Human Regular AC SC 12/25/24 17:00 12/26/24 12:18 2 UNITS Dextrose 50 ml UD PRN IV 12/25/24 15:15 Laboratory Results Laboratory Tests 12/26/24 05:31 12/26/24 13:00 Chemistry Test 12/26/24 05:31 Calcium Level 9.2 mg/dL (8.7-10.4) Urinalysis Test 12/25/24 08:40 Urine Color Yellow (Yellow) Urine Clarity Clear (Clear) Urine pH 5.5 (5.0-9.0) Urine Specific [place] 1.037 (1.001-1.035) Urine Protein Trace (Negative) H Urine Ketones 1+ (Negative) H Urine Blood Trace /uL (Negative) H Urine Nitrite 2+ (Negative) H Urine Bilirubin Negative (Negative) Urine Urobilinogen Normal mg/dL (Negative) Urine Leukocyte Esterase Trace /uL (Negative) Urine RBC 2 /hpf (0 - 3) Urine Microscopic WBC 10 /HPF (0-3) H Urine Squamous Epithelial Cells Few /hpf (<5) Urine Bacteria None seen /hpf (None Seen) Urine Hyaline Casts Few /lpf (0 - 2) Urine Mucus Few (None Seen) Urine Yeast (Budding) Occasional /hpf (None Urine Glucose 4+ mg/dL (Normal) H Assessment/Plan Assessment/Plan 54-year-old male with a known history of hypertension, insulin-dependent diabetes mellitus, recent laparoscopic appendectomy about two weeks ago presented to the hospital with the abdominal pain and nausea found to have 1. Abdominal CT of the finding with the inflammatory changes at the operative site with mesenteric adenitis. 2. Right lower quadrant abdominal pain associated with the nausea ,currently resolved 3. Mild leukocytosis 4. Insulin-dependent diabetes mellitus type 2 5. Hypertension -tolerating full liquid diet, advanced to soft diet -follow up General surgery for discharge plan. Plan discussed with: Patient My Orders Orders - BREANNA BLANCO MD Procedure Category Date Status Time Glucose Blood PHA 12/25/24 In Process (Accu-Chek Comfort 17:00 Insulin R (Human) PHA 12/25/24 In Process (Insulin R) 22:00 Insulin R (Human) PHA 12/25/24 In Process (Insulin R) 17:00 Dextrose 50% Syringe PHA 12/25/24 In Process 15:15 Date of Service: Dec 26, 2024 Billing Provider: BREANNA BLANCO MD Common Visit Codes: NOT BILLABLE BREANNA BLANCO MD Dec 26, 2024 14:11
--- NOTE | 2024-12-26 23:48 | ECG ---
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
[2024-12-27] VITALS (8 sets, daily range): BP systolic 113–137; BP diastolic 60–80; PULSE 51–95; RESP 16–20; TEMP 97.9–98.2; O2SAT 96–100
--- NOTE | 2024-12-27 11:42 | DVHPN2 ---
Progress Note - Surgical Date Seen: Dec 27, 2024 Post op day Post op day: 0 Subjective Patient reports: No new complaints, Feels better Review of Systems: HEENT:Normal, CVS:Normal, RESPIRATORY:Normal, GI:Normal, :Normal, MSK:Normal, NEURO:Normal Objective Vital signs Vital Sign Date Time Temp Pulse Resp B/P (MAP) Pulse Ox O2 Delivery O2 Flow Rate FiO2 12/27/24 09:00 98.2 56 17 113/68 (83) 98 98.2 12/27/24 08:20 Nasal Cannula* 2 28 Total Intake and Output 12/26/24 12/26/24 12/27/24 15:00 23:00 07:00 Intake Total 100 ml 200 ml 800 ml Output Total 300 ml Balance 100 ml -100 ml 800 ml Medications Current Medications Medications Dose Ordered Sig/Lizzette Route Start Time Stop Time Status Last Admin Dose Admin Sodium Chloride 1,000 ml @ 100 mls/hr Q10H IV 12/25/24 01:30 12/26/24 17:40 100 MLS/HR Piperacillin Sod/ Tazobactam Sod 100 ml @ 100 mls/hr Q8HR IV 12/25/24 06:00 12/27/24 06:07 100 MLS/HR Ondansetron HCl 4 mg Q6HPRN PRN IV 12/25/24 01:30 Morphine Sulfate 2 mg Q6HPRN PRN IV 12/25/24 01:30 12/25/24 22:04 2 MG Famotidine 20 mg DAILY IV 12/25/24 10:00 12/27/24 10:14 20 MG Enoxaparin Sodium 40 mg DAILY SC 12/25/24 10:00 12/27/24 10:14 40 MG Diagnostic Test (Pha) 1 strip ACHS 12/25/24 17:00 12/27/24 06:07 1 STRIP Insulin Human Regular HS SC 12/25/24 22:00 12/26/24 21:50 3 UNITS Insulin Human Regular AC SC 12/25/24 17:00 12/27/24 06:06 2 UNITS Dextrose 50 ml UD PRN IV 12/25/24 15:15 Laboratory Laboratory Tests 12/26/24 13:00 12/26/24 05:31 Test 12/26/24 05:31 Range/Units Serum Glucose 121 H 74-106 mg/dL Examination: GENERAL:Normal, HEENT:Normal, NECK:Normal, LUNGS:Normal, CVS:Normal, ABDOMEN:Normal, MSK:Normal, SKIN:Normal, NEURO:Normal Problem List/Assessment/Plan Assessment and Plan no new complaints, patient feeling better, abdomen soft, non tender, non distended, continue IV antibiotics , discharge in 24 hours , please recall if needed , patient to follow up in clinic in 7-10 days Plan discussed with Plan discussed with: Patient Visit Coding Surgery Date of Service if different f: Dec 27, 2024 Billing Provider: NIRMAL BAUMAN MD Surgery Visit Codes: [id number] INP/OBS CARE(HIGH) SUYAPA HARLEY NP Dec 27, 2024 11:42
== END 2024-12-27 17:55 | disposition home or self-care (01) | DRG 254 ==
LOC: EDBD 15:38 → ER 15:42 → TELE 12-25 01:20 → TELE-WESTW 12-25 17:16
PROVIDERS: ADMIT Nurse Practitioner Family; ATTEND Nurse Practitioner Family
DX: I88.0 Nonspecific mesenteric lymphadenitis (principal); D72.829 Elevated white blood cell count, unspecified; E87.6 Hypokalemia; I25.10 Atherosclerotic heart disease of native coronary artery without angina pectoris; I10 Essential (primary) hypertension; Z79.4 Long term (current) use of insulin; Z90.49 Acquired absence of other specified parts of digestive tract; Z87.891 Personal history of nicotine dependence; Z83.3 Family history of diabetes mellitus; Z82.49 Family history of ischemic heart disease and other diseases of the circulatory system; Z79.899 Other long term (current) drug therapy
CPT/HCPCS: 36415; 71045; 74176; 80048; 80053; 81001; 82962; 83605; 83690; 83735; 84484; 85025; 85610; 93005; 96365; 96375; G0378; J1815; J2405; J2543; J3480; J3490